=== PATIENT | female | born 1990 | race Caucasian/White ===

== ENCOUNTER 2017-05-30 15:44 | Emergency (ER) | payer MEDICAID, SELFPAY ==
[2017-05-30 15:44] VITALS: BP 105/68; PULSE 75; RESP 16; TEMP 36.8; O2SAT 99; BMI 27.1
--- NOTE | 2017-05-30 16:08 | ED.DCSUM_ITS ---
- ER Visit Summary Date of Service: 05/30/17 Chief Complaint: Nausea and vomiting History of Present Illness: The patient is a 26 F presenting with nausea and vomiting x 3 days. She denies diarrhea. Denies fever. She denies sick contacts. No recent bad food exposure, antibiotics or travel. She states that she has felt generalized weakness today. Complains of mild diffuse abdominal cramping. Denies possibility of . Physical Examination: Vitals are stable. Patient is afebrile. Alert no acute distress HEENT: unremarkable NECK: supple HEART: regular rate and rhythm LUNGS: clear and equal bilaterally ABDOMEN: soft and nontender, no rebound or guarding EXTREMITIES: unremarkable NEURO: no focal deficit Remainder of exam is unremarkable Emergency Department Course and Treatment: Patient is given IV fluids, zofran. CBC, chemistries unremarkable. Liver lipase are normal. HCG negative. Patient is feeling improved in the emergency department. She is able to tolerate p.o. Advised to follow-up with her primary care physician. Advised return to ED for worsening complaints. Disposition: Discharge home Impression: Nausea, vomiting This note was generated with [employer] dictation software. It may contain incorrect words, spelling, and punctuation that were not noted in review of the chart prior to signing ED Disposition - Plan for ED Patient: Disposition: Home or Assisted Living Chief Complaint: Nausea/Vomiting Instructions: ED Nausea Vomiting Prescriptions: Ondansetron [Zofran Odt] 4 mg PO Q8H PRN PRN #10 tablet PRN Reason: Nausea Referrals: Cali Frank MD [Primary Care Provider] -
[2017-05-30] MEDS: 0.9% Normal Saline 1,000 ML 1000 ML IV (16:17)
[2017-05-30] MEDS: Ondansetron 4 MG/2 ML Vial IV (16:17)
[2017-05-30 16:35] LABS: Absolute Lymphocyte Count 2.43 X10^3/ul (0.83-4.51); Absolute Neutrophil Count 6.2 X10^3/uL (2.0-7.7); Basophil# 0.03 X10^3/uL; Basophil% 0.3 % (0-1); Eosinophil# 0.37 X10^3/uL; Eosinophils% 3.8 % (0-5); Hematocrit 42.8 % (37-47); Hemoglobin 14.3 g/dl (12.0-15.0); Lymphocyte # 2.43 X10^3/ul (4.0); Lymphocyte % 24.6 % (19-41); Mean Corp Hgb Conc 33.4 g/gl (32-36); Mean Corpuscular Hgb 30.3 pg (27.0-32.0); Mean Corpuscular Volume 90.7 fL (81-99); Mean Platelet Vol. 11.2 fl (6.2-12.0); Monocyte# 0.83 X10^3/uL; Monocyte% 8.4 % (0-10); Neutrophil # 6.18 X10^3/uL (2.7-7.7); Neutrophil % 62.7 % (47-70); Platelet Count 237 K/mm3 (150-450); RBC Distribution Width CV 13.1 % (11.6-14.6); RBC Distribution Width SD 43.5 fl (35.1-43.9); Red Blood Count 4.72 M/mm3 (4.2-5.4); White Blood Count 9.9 K/mm3 (4.4-11.0)
[2017-05-30 16:41] LABS: POSITIVE COUNT NO; POSITIVE DIFFERENTIAL NO; POSITIVE MORPHOLOGY NO
[2017-05-30 16:58] LABS: ALB/GLOB Ratio 1.1 RATIO (0.9-2.4); AST(SGOT) 5 U/L (15-37); Alanine Aminotransfer ALT/SGPT 15 U/L (13-56); Albumin, Serum 3.7 g/dL (3.2-5.0); Alkaline Phosphatase 72 U/L (45-117); Anion Gap 7 (5-15); BUN 9 mg/dL (7-18); Calcium,Total 8.4 mg/dL (8.5-10.1); Chloride 108 mmol/L (98-107); EST Glomerular Filtration Rate 158 mL/min (>60); Est Glom Filt Rate - Afr Amer 192 mL/min (>60); Estimated Creatinine Clearance 173.51 ml/min; Globulin 3.4 g/dL (2.2-4.2); Glucose 103 mg/dL (74-106); Lipase 112 U/L (73-393); Potassium 3.9 mmol/L (3.5-5.1); Protein, Total 7.1 g/dL (6.4-8.2); Sodium Level 141 mmol/L (136-145)
[2017-05-30 17:17] LABS: Pregnancy, Serum, hCG Quali. NEGATIVE Negative (0-9 Nonpreg)
--- NOTE | 2017-05-30 17:25 | ED.DEP ---
ED Disposition - Plan for ED Patient: Chief Complaint: Nausea/Vomiting Instructions: ED Nausea Vomiting Prescriptions: Ondansetron [Zofran Odt] 4 mg PO Q8H PRN PRN #10 tablet PRN Reason: Nausea Referrals: Cali Frank MD [Primary Care Provider] -
[2017-05-30 17:41] VITALS: BP 124/77; PULSE 68; RESP 15; O2SAT 97
== END 2017-05-30 17:42 | disposition home or self-care (01) ==
PROVIDERS: Emergency Provider Emergency Medicine; Family Provider Family Medicine; PCP Family Medicine
DX: R11.2 Nausea with vomiting, unspecified (principal); Z72.0 Tobacco use
CPT/HCPCS: 80053; 83690; 84703; 85025; 96361; 96374; 99283; J2405

== ENCOUNTER → 2018-06-26 14:06 | Outpatient (CLI) | payer MEDICAID, SELFPAY ==
[2018-06-30 17:22] LABS: HPV Reflexed? NOT INDICATED
== END ==
PROVIDERS: Visit Provider Obstetrics & Gynecology
DX: Z12.4 Encounter for screening for malignant neoplasm of cervix (principal)
CPT/HCPCS: 88175; G0145

== ENCOUNTER → 2018-08-24 16:57 | Outpatient (CLI) | payer MEDICAID, SELFPAY ==
[2018-08-24 19:32] LABS: Chlamydia Trachomatis by PCR Negative (Negative); Neisserai gonorrhoeae by PCR Negative (Negative); Probe Check PASS; Sample Adequacy Control PASS; Specimen Processing Control PASS
== END ==
PROVIDERS: Visit Provider Obstetrics & Gynecology
DX: Z11.3 Encounter for screening for infections with a predominantly sexual mode of transmission (principal)
CPT/HCPCS: 87491; 87591

== ENCOUNTER → 2018-09-08 11:57 | Outpatient (CLI) | payer MEDICAID, SELFPAY ==
[2018-09-08 12:23] LABS: Absolute Neutrophil Count 5.1 X10^3/uL (2.0-7.7); Basophil# 0.04 X10^3/uL; Basophil% 0.5 % (0-1); Color, Urine Yellow (Yellow); Eosinophil# 0.16 X10^3/uL; Eosinophils% 1.9 % (0-5); Glucose, Dipstick Normal (Normal); Hematocrit 41.9 % (37-47); Hemoglobin 14.5 g/dl (12.0-15.0); Ketone-Dipstick Negative (Negative); Leukocyte Esterase-Dipstick 25 /ul (Negative); Lymphocyte % 27.4 % (19-41); Mean Corp Hgb Conc 34.6 g/gl (32-36); Mean Corpuscular Hgb 30.7 pg (27.0-32.0); Mean Corpuscular Volume 88.6 fL (81-99); Mean Platelet Vol. 10.8 fl (6.2-12.0); Monocyte# 0.78 X10^3/uL; Monocyte% 9.3 % (0-10); Neutrophil # 5.09 X10^3/uL (2.7-7.7); Neutrophil % 60.7 % (47-70); Nitrite-Dipstick Negative (Negative); Occult Blood-Urine Negative /ul (Negative); POSITIVE COUNT NO; POSITIVE DIFFERENTIAL NO; POSITIVE MORPHOLOGY NO; Platelet Count 254 K/mm3 (150-450); Protein-Dipstick Negative (Negative); RBC Distribution Width CV 13.3 % (11.6-14.6); RBC Distribution Width SD 43.2 fl (35.1-43.9); Red Blood Count 4.73 M/mm3 (4.2-5.4); Urine Bilirubin Dipstick Negative (Negative); Urine Clarity Clear (Clear); Urine Urobilinogen Normal (Normal); White Blood Count 8.4 K/mm3 (4.4-11.0)
[2018-09-08 12:49] LABS: Thyroid Stim Hormone (TSH) 0.82 uIU/mL (0.358-3.74)
[2018-09-08 12:50] LABS: Amphetamine Urine VISTA NEGATIVE (<1000 ng/mL); Barbiturate Urine VISTA NEGATIVE (< 200 ng/mL); Benzodiazepine Urine VISTA NEGATIVE (< 200 ng/mL); Cocaine Urine VISTA NEGATIVE (< 300 ng/mL); Ecstacy Urine VISTA NEGATIVE (< 500 ng/mL); Methadone Urine VISTA NEGATIVE (< 300 ng/mL); PCP Urine VISTA NEGATIVE (< 25 ng/mL); THC Urine VISTA POSITIVE (< 50 ng/mL); Vista UDS pH Range 8
[2018-09-08 14:15] LABS: HIV - WCH Non-Reactive (Nonreactive); Rubella IgG 284.7 IU/mL
[2018-09-10 13:30] LABS: HEPATITIS B SURFACE AG Negative (Negative); Hep C Antibodies <0.1 s/co ratio (0.0-0.9)
[2018-09-15 01:43] LABS: Prenatal RPR NONREACTIVE (NONREACTIVE)
== END ==
PROVIDERS: Visit Provider Obstetrics & Gynecology
DX: Z34.81 Encounter for supervision of other normal pregnancy, first trimester (principal)
CPT/HCPCS: 36415; 80307; 81002; 84443; 85025; 86703; 86762; 86803; 87340

== ENCOUNTER 2018-10-18 11:59 | Emergency (ER) | payer MEDICAID, SELFPAY ==
[2018-10-18 12:02] VITALS: BP 105/61; PULSE 74; RESP 17; TEMP 36.8; O2SAT 100; BMI 30.5
--- NOTE | 2018-10-18 12:25 | ED.DCSUM_ITS ---
- ER Visit Summary Date of Service: 10/18/18 Chief Complaint: Itchy rash History of Present Illness: The patient is a 28 F states that she is 13 weeks went to bed feeling fine last night and woke with a itchy diffuse rash. Patient describes the rash is red and slightly raised. She denies any changes in soaps lotions detergents perfumes etc. No one else in the house seems to have symptoms. She is patient of Dr. Lim. She is Adryan on Pepcid twice a day. Took a Benadryl this morning with no relief. Physical Examination: Afebrile vital signs stable Gen: Well-nourished well-developed Head: Normocephalic atraumatic Eyes: Perrl EOMI no jaundice ENT: TMs clear no rhinorrhea moist mucous membranes Neck: Supple no lymphadenopathy no JVD nontender CVS: Regular rate rhythm no murmurs normal S1-S2 Respiratory: No distress clear to auscultation bilaterally chest nontender Abdomen: Soft nontender nondistended normal bowel sounds no masses Back: Nontender Extremity: Nontender no edema Skin: Normal color there are raised blanching lesions diffusely on her body. Neuro: alert orientated ?3 CN II-XII intact normal strength sensation reflexes Psych: Normal affect normal mood Emergency Department Course and Treatment: I will start the patient on burst dose prednisone. She is Adryan taking Benadryl as well as Pepcid. Follow-up with [facility]. Impression: 1. Urticaria 2. Second trimester This note was generated with [employer] dictation software. It may contain incorrect words, spelling, and punctuation that were not noted in review of the chart prior to signing ED Disposition - Plan for ED Patient: Disposition: Home or Assisted Living Instructions: Understanding Urticaria (Hives) Prescriptions: Prednisone [Deltasone] 40 mg PO DAILY #10 tab Prescription Printed Referrals: Jessica Lim MD [STAFF PHYSICIAN] - 1 Week if not improving Additional Instructions: Continue Benadryl 25 mg every 6-8 hours. Continue your Pepcid
== END 2018-10-18 12:40 | disposition home or self-care (01) ==
PROVIDERS: Emergency Provider Emergency Medicine
DX: O26.891 Other specified pregnancy related conditions, first trimester (principal); L50.9 Urticaria, unspecified; K59.00 Constipation, unspecified; K21.9 Gastro-esophageal reflux disease without esophagitis; O99.331 Smoking (tobacco) complicating pregnancy, first trimester; F17.200 Nicotine dependence, unspecified, uncomplicated; Z3A.13 13 weeks gestation of pregnancy
CPT/HCPCS: 99282

== ENCOUNTER → 2018-11-03 13:43 | Outpatient (CLI) | payer MEDICAID, SELFPAY ==
[2018-10-18 12:02] VITALS: BMI 30.5
[2018-11-08 04:10] LABS: AFP MoM Value 0.84 (.); Comment Report (.); DIA MoM Value 0.81 (.); DIA Value-EIA 120.82 pg/mL (.); DSR (By Age) 871 (.); DSR (Second Trimester) 8230 (.); Gestat. Age Based On As provided (.); Gestational Age 15.6 WEEKS (.); Insulin Dep Diabetes No (.); Maternal Age At EDD 27.8 yr (.); hCG MoM 0.44 (.); hCG Value 17152 mIU/mL (.)
== END ==
PROVIDERS: Visit Provider Obstetrics & Gynecology
DX: Z34.82 Encounter for supervision of other normal pregnancy, second trimester (principal)
CPT/HCPCS: 36415; 82105; 82677; 84702

== ENCOUNTER → 2019-02-02 10:45 | Outpatient (CLI) | payer MEDICAID, SELFPAY ==
[2019-02-02 11:11] LABS: Hematocrit 38.3 % (37-47); Hemoglobin 12.7 g/dL (12.0-15.0); Mean Corp Hgb Conc 33.2 g/dL (32-36); Mean Corpuscular Hgb 30.9 pg (27.0-32.0); Mean Corpuscular Volume 93.2 fL (81-99); Mean Platelet Vol. 10.6 fl (6.2-12.0); Platelet Count 217 K/mm3 (150-450); RBC Distribution Width CV 13.1 % (11.6-14.6); RBC Distribution Width SD 44.9 fl (35.1-43.9); Red Blood Count 4.11 M/mm3 (4.2-5.4); White Blood Count 10.8 K/mm3 (4.4-11.0)
[2019-02-02 11:30] LABS: Glucose Challenge Gest 1H 50g 99 mg/dL (70-140)
[2019-02-02 13:37] LABS: Amphetamine Urine VISTA NEGATIVE (<1000 ng/mL); Barbiturate Urine VISTA NEGATIVE (< 200 ng/mL); Benzodiazepine Urine VISTA NEGATIVE (< 200 ng/mL); Cocaine Urine VISTA NEGATIVE (< 300 ng/mL); Ecstacy Urine VISTA NEGATIVE (< 500 ng/mL); Methadone Urine VISTA NEGATIVE (< 300 ng/mL); PCP Urine VISTA NEGATIVE (< 25 ng/mL); THC Urine VISTA POSITIVE (< 50 ng/mL); Vista UDS pH Range 6
== END ==
PROVIDERS: Visit Provider Obstetrics & Gynecology
DX: Z34.83 Encounter for supervision of other normal pregnancy, third trimester (principal)
CPT/HCPCS: 36415; 80307; 82950; 85027

== ENCOUNTER 2019-02-08 12:50 | Emergency (ER) | payer MEDICAID, SELFPAY ==
[2019-02-08 12:52] VITALS: BP 135/87; PULSE 97; RESP 20; TEMP 36.6; O2SAT 99; BMI 34.5
--- NOTE | 2019-02-08 13:12 | ED.DCSUM_ITS ---
History of Present Illness Chief Complaint: Cold Sx Detail of Chief Complaint: Cough and congestion Informant: Patient Onset: Weeks - 2 weeks Current Severity: Moderate Maximum Severity: Moderate Narrative: Patient presents with cough and congestion for the past 2 weeks. She is bringing up yellow-colored sputum. She has not had fever. She is a history of asthma, but does not have an inhaler. She states she wakes up in the middle the night gasping for breath with tightness around her right lung. She is currently 29-1/2 weeks . She is tried Mucinex, Sudafed, cough drops, and Ro bitussin without significant improvement. Past Medical History - Allergies and Home Meds Allergies/Adverse Reactions: Allergies No Known Allergies Allergy (Verified 02/08/19 12:51) Primary Care Physician: Cali Frank MD [Primary Care Provider] - 3-5 Days if not improving Doctors: Dr. Lim Prior records reviewed: Yes Past Medical History: - - Reviewed Lives: With Family Smoking Status: Former smoker Review of Systems General: Denies: Chills, Fever Eyes: Denies: Visual changes - bilaterally ENT: Reports: - - Head congestion. Denies: Bilateral ear pain Cardiovascular: Denies: Chest pain Respiratory: Reports: Dyspnea, Cough, Sputum Gastrointestinal: Reports: Nausea - Posttussive dry heaves. Denies: Abdominal pain Genitourinary: Denies: Dysuria Musculoskeletal: Reports: Myalgias Hematologic: Denies: Easy bruising Allergy: Denies: Uticaria Physical Exam Vital Signs/Narrative: Vital Signs Temp Pulse Resp BP Pulse Ox 02/08/19 12:52 97.8 F 97 20 H 135/87 H 99 Inital Vital Signs reviewed: Yes General: Well nourished, Well developed Head: Normocephalic, Atraumatic Eyes: Perrl, EOMI ENT: Moist mucous membranes, TM's clear, - - Mild posterior pharyngeal drainage. Uvula midline. Neck: - - Mild anterior cervical lymphadenopathy bilaterally. Cardiovascular: Regular rate, Regular rhythm Respiratory: No distress, CTA bilaterally Abdomen: Soft, Nontender - Gravid Extremities: Nontender Skin: Normal color, No rash Neurological: Alert, Oriented x3 Psychological: Normal affect Diagnostic/Tx/Re-eval - Medical Decision Making Patient does have frequent moist cough during exam. Her lungs are clear. With 2 weeks of symptoms she will be covered with a course of Zithromax, first dose given here. She will also be given a prescription for an albuterol inhaler. Without wheezing currently do not think she needs steroids at this time. She will continue her Robitussin and cough drops [id number]. ED Disposition - Plan for ED Patient: Disposition: Home or Assisted Living Diagnosis: Bronchitis Instructions: Acute Bronchitis Prescriptions: Albuterol Inhaler [Ventolin Hfa] 1 - 2 puff INHALATION Q4H PRN PRN #1 inhaler PRN Reason: Wheezing Prescription Printed Azithromycin [Zithromax] 250 mg PO DAILY #4 tab Prescription Printed Referrals: Cali Frank MD [Primary Care Provider] - 3-5 Days if not improving
[2019-02-08] MEDS: Azithromycin 250 MG Tablet 500 MG PO (13:31)
== END 2019-02-08 13:36 | disposition home or self-care (01) ==
PROVIDERS: Emergency Provider Emergency Medicine; Family Provider Family Medicine; PCP Family Medicine
DX: O99.511 Diseases of the respiratory system complicating pregnancy, first trimester (principal); J20.9 Acute bronchitis, unspecified; J45.909 Unspecified asthma, uncomplicated; Z87.891 Personal history of nicotine dependence; Z3A.01 Less than 8 weeks gestation of pregnancy
CPT/HCPCS: 99283; J7030

== ENCOUNTER → 2019-03-26 15:38 | Outpatient (CLI) | payer MEDICAID, SELFPAY | PROVIDERS: Visit Provider Obstetrics & Gynecology | DX: Z36.85 Encounter for antenatal screening for Streptococcus B (principal) | CPT/HCPCS: 87081 ==

== ENCOUNTER 2019-04-18 07:00 | Inpatient (IN) | payer MEDICAID, SELFPAY ==
[2019-04-18] MEDS: Lactated Ringers 1,000 ML 50 ML IV (07:45)
[2019-04-18 07:50] VITALS: BMI 36.8
[2019-04-18] MEDS: Oxytocin 30 units/NS 500 ml 30 UNITS/500 ML IV.SOLN IV (07:52)
[2019-04-18 08:29] LABS: Absolute Lymphocyte Count 2.79 X10^3/uL (0.83-4.51); Absolute Neutrophil Count 10.2 X10^3/uL (2.0-7.7); Basophil# 0.09 X10^3/uL; Basophil% 0.6 % (0-1); Eosinophil# 0.18 X10^3/uL; Eosinophils% 1.2 % (0-5); Hematocrit 36.4 % (37-47); Hemoglobin 12.2 g/dL (12.0-15.0); Lymphocyte # 2.79 X10^3/ul (4.0); Lymphocyte % 18.7 % (19-41); Mean Corp Hgb Conc 33.5 g/dL (32-36); Mean Corpuscular Volume 89.4 fL (81-99); Mean Platelet Vol. 11.5 fl (6.2-12.0); Monocyte# 1.23 X10^3/uL; Monocyte% 8.2 % (0-10); NRBC Flagged by Analyzer 0 % (0-5); Neutrophil # 10.15 X10^3/uL (2.7-7.7); Neutrophil % 67.9 % (47-70); Platelet Count 236 K/mm3 (150-450); RBC Distribution Width CV 12.9 % (11.6-14.6); RBC Distribution Width SD 42.2 fl (35.1-43.9); Red Blood Count 4.07 M/mm3 (4.2-5.4)
--- NOTE | 2019-04-18 09:21 | HP.PCM_ITS ---
History and Physical Date of Admission: 04/18/19 [facility] [place] PHYSICAL (04/18/2019) Name: YISSEL REEVES OB Physician: WILMA Leeds's Physician: Yumiko ...................................................................... : 1990 Age: 28 Address: [address] [place] [address] Phone: (h) [phone] ([phone] Insurance Carrier: [employer] CLAIMS DEPT [id number] Emergency Contact: JANELL JOHNSON/AUNT [phone] ...................................................................... Yissel is a 28yo at 39w2d gestation by 7w4d US admitted for elective IOL today; pt reports a hx of schizophrenia, bipolar disorder, PTSD and THC use, is aware a tox screen will be requested today and is agreeable; she is not on medication for psychiatric disorders and seems appropriate today; she is accompanied by her spouse who is supportive Final BENJY: 04/23/19 By Ultrasound: 7 weeks 4 days PARITY: (G-Total Pregnancies P-Fullterm,Premature,Induced AB,Spont AB, Ectopics, Multiple,Living) BENJY CONFIRMATION: By LMP: 07/10/18 Initial Exam: 04/16/19 By First Ultrasound Exam: 04/23/19 Final BENJY: 04/23/19 OB PROBLEM LIST: Admits to recent marijuana use regularly smoking marijuana in has a sister with animpulse disorder, states form of autism Has been through [facility] program Patient schizophrenic, bipolar and PTSD Prefers NO epidural, if possible See other note (violent when in pain) Pt has a family hx of neurological problems (she has tics, father has Parkinson's, epilepsy). Son has seizures (unknown etiology) Shares that she was hospitalized when her son was a year old for depression and psychosis. 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 Sterilization request, Prefers no Filshie clips. Discussed BTF vs bilateral salpingectomy. R,B,A, permanence, failure rate. Federal consent signed on 03/13/19 Wants MSAFP and declines CF testing ALLERGIES: NKDA MEDICATIONS: Colace 100 mg capsule 1 po bid Miralax 17 gram/dose oral powder 17 gm po daily Pepcid 20 mg tablet 1 po bid 28 mg-800 mcg tablet daily SOCIAL HISTORY: Smoking - 5-8 cigs per day, ATQ Alcohol Use - denies drinking Diet - High fast food diet, high caffeine Lifestyle - high stress lifestyle and Exercise - walks everywhere Employer - [employer] Job Description - [place] Illicit Drug Use - admits marijuana use Sexual Activity - Residence - Lives with family at in-laws Place of - [place], [place] Hours Worked - 40 hours per week Spouse-Sig Other Name - Yann Reeves Spouse-Sig Other Occupation - SSI Spouse-Sig Other Phone No - no phone Children Name(s) - Isaac (EB)Eric ( 14' EB) PRIOR DELIVERY HISTORY DEL DATE GEST LAB WT LB WT OZ TYPE ANES LABOR TX 24 Jan 14 39 7 7 12 Vag Epidural No 28 Jan 11 40 14 8 1 Vag Epidural No ANTEPARTUM FLOW CHART VISIT GE RTC FU F F GA U U DATE WK MD WKS HT PN HR M SS BP ED WT GA GL D EF ST __ ____ ___ __ __ ___ __ __ __ ___ __ __ __ ___ __ 13 Apr KW 1 39 V + + 120/60 sl 241 tr - 3 80 -2 Apr CH 1 38 V + + 120/64 sl 239 tr - Mar 37 KW 1 38 + + 110/80 0 237 tr - Mar 36 CH 1 36 V + + 102/80 sl 237 tr - 10 Mar 34 ELB 2 34 - + + 120/72 sl 237 26 Feb CH 2 32 + + 110/60 sl 236 tr - 15 Mar 03 KW 2 30 + + 120/80 sl 230 - - 01 Mar 01 ELB 2 28 - + + 100/60 229 04 Oct ELB 4 24 - + + 120/70 sl 222 tr - 06 Dec 22 ELB 4 - - U+ + 112/80 0 209 tr - Nov 16 ELB 5 - - + O 102/70 0 209 tr - 05 Oct 12 ELB 4 - - U+ US 90/58 0 196 tr - 07 Sep 08 ELB 4 - - U+ US 110/70 190 - - ANTEPARTUM NOTE(S): Apr 16 2019: feeling well. Cervix check. Apr 09 2019: feeling well. Cervix check. Apr 02 2019: feeling well. Mar 26 2019: GBS and LARC today. Mar 13 2019: Nov 26 2019: feeling well. Very tired. Feb 16 2019: finished rx for Bronchitis 2 days ago. Feb 02 2019: cold sx, back pain Jan 05 2019: glucola given Dec 08 2018: feeling well. Nov 03 2018: feeling well. Oct 06 2018: tired nausea with vitamin Sep 08 2018: Nausea. US, NOB, PNV. COMPREHENSIVE ANTEPARTUM NOTE(S): Apr 16 2019: Feeling well; reports active FM, frequent BH UCs, denies VB, LOF; VE per pt request /-2, soft, mid position; pt requesting IOL, scheduled for 04/18/19 0700; discussed warning signs, s/s Labor, when to call/come in; RTO 1 week for PNV - KVW Apr 09 2019: (m,m,f*) FM+. FHR 138. Membrane sweeping discussed. SVE 1.5/75/-3. Sweeping done. [place] have increased the last week or two, but nothing regular. Warning signs of decreased FM, bleeding or regular UC. To return in 1 week for routine PNV. To discuss induction at 40 weeks. - Apr 02 2019: Feeling well; reports active FM, frequent BH UCs, denies VB, LOF; continues to want to labor without an epidural, feels that she is more in control of her emoitions now having experienced two prior births, and less risk of becoming violent when in pain; discussed warning signs, s/s Labor, when to call/come in; RTO 1 week for PNV - KVW Apr 02 2019: H taken to OB. tkg Mar 29 2019: GBS negative. EB Mar 26 2019: (m,m,f*) FM+. FHR 156. GBS collected today. SVE education given. BTL consent signed with Dr. Lim at last visit. Okay with CNM delivery. Trying to still avoid epidural, but all pain management options given. Warning signs of decreased FM, bleeding or regular UC. To return in 1 week for routine PNV - Mar 25 2019: (m,m,f*) FM+. FHR. GBS collected today. SVE education given. BTL consent signed with Dr. Lim at last visit. Okay with CNM delivery. Trying to still avoid epidural, but all pain management options given. Warning signs of decreased FM, bleeding or regular UC to call. Will return in 1 week for routine PNV. - Mar 13 2019: Yissel is here at 34.1 weeks gestation for visit. Baby active. Slight edema in fingers w ring tight- suggested removing. Asking how to sign papers for tubal after delivery. Surinder FOSTER. Mar 13 2019: Reviewed pain relief in labor Can get violent when in pain as prior chart note. She had epidural with both prior deliveries. Back pain, chronic. Reviewed option for epidural. IV pain med. She will see what she needs in labor. OK with CNM delivery. Has met Deja and plans to follow up with her. FEDERAL consent for BTO signed today. Reviewed options: DECLINES FILSHIE CLIPS , Considering either BTF for bilateral salpingectomy. EB Feb 27 2019: (m,m,f*) Reports +FM. FHR 122 .Instructed to call with RUC, ROM, bleeding, or decreased FM. Has no complaints or concerns. Wants to discuss BTL with Dr. Lim at next visit. Asked if 6 year old could be in delivery room. Let her know its up to the individual provider that day, but he would have to have an adult assigned just to him. Will return in 2 weeks for routine PNV. - Feb 16 2019: Feeling better, went to [facility] MD last week who sent her to ER; she was given an rx for Azithromycin which she has finished, and an albuterol inhaler which she still uses once each evening; was told she had bronchitis; has not smoked (anything) in two weeks, too irritating to throat, diffidcult to breathe after; lungs CTA upper lobes, slightly diminished in bases, good air movement; will discuss with spouse and inform at next visit preference for MD, CNM care or either; wants as natural a labor as possible, planning to use Budhist chants/focal point in labor; reports active FM; denies UCs, VB, LOF; discussed inreased rest, fluids, FM counts, warning signs, s/s PTL; RTO 2 weeks for PNV - KVW Feb 08 2019: Yissel calling @ 29 wks 3 days to report she still has a cough, feels SOB, chest tightness, R sided rib area pain--concerned she may have bronchitis. She has not checked her Temp. Not sleeping d/t persistent cough. Voice very raspy on the phone. She has been taking Mucinex, Tylenol, Sudafed -- w/no improvement in Sx. Advised to see her PCP TODAY for evaluation. Feb 02 2019: Yissel complains of cold sx for over a week. Afebrile today in office, T-97.7. She relates increased back pain. Advised may try Tylenol, massage, chiropractor, PT. Will consider all. Maternity support belt may help and admits that she feels her weight gain may be contributing and agree this may be part of the issue. Glucola drawn today. LMT Feb 02 2019: Reviewed sx relief of back pain, cold sx. OTC list of meds given. RTO in 2 wk for PNV. Meeting CNM next visit. Advised if cold sx more than 1 wk with taking med, call back in. Kids at home have been sick also. States nasal congestion, cough. poor sleep, etc. Utox to be sent today. EB Glucola 99 Hgb 12.7 g/dl. EB Jan 05 2019: Glucola given with instructions. Encouraged Tdap and Influenza. LMT Jan 05 2019: Discussed wt gain 35# by 24 wks. Anticipate 50# or more by EDC. Encouraged to limit portions, fried foods, sweets. Admits to eating fair foods and birthday cakes as sources of her inc calories. EB Nov 03 2018: WANTS MSAFP and draw this today. RTO In 4 1/2 to 5 wk for anatomy sono. Reviewed wt gain. eliminate sweet liquids. Watch portion size. Anticipate up to 60# wt gain if diet / activity is not changed. EB Nov 03 2018: MSAFP is drawn today. LMT Oct 06 2018: Yissel is here for visit. Relates throws up after taking PNV and advised she can stop this for a couple weeks and then retry. She relates that she is very tired and sleeps about 15 hours a day. Advised fatigue and nausea pretty normal in first trimester and should start feeling better soon. She has gained 6 lbs since her last visit. LMT Oct 06 2018: Reviewed NOB labs. Positive marijuana. States this is due to storage of the drug in her fatty tissue. Denies current use and advised that she should not be using this in . Other labs all WNL. TSH wnl and Hgb WNL. Doing OK. sono confirms viable IUP. EB Sep 08 2018: Constipation Heart burn. Nausea. RX Colace bid, Miralax. Pepcid bid. Positive THC. A positive RI. Hgb 14.5 g/dl. EB Sep 08 2018: Yissel is here for her NOB visit at 7 w 4 d GA, she is a with an BENJY of 04/23/2019. US completed prior to NOB visit, and she will have labs drawn and PNV with Dr. Lim before leaving the office today. Yissel is established pt, office practice patterns reviewed, as well as what labs will be collected today. Emergencies/danger signs to report, round ligament pain, reporting s/s of a UTI, and common OTC medications approved/not approved for use during reviewed. Yissel resides with her , and their two sons at her in-laws residence, as they lost there home and their car broke down. Yissel works FT at [employer], and walks everywhere that she can. Her , Yann, is on SSI; she states that she has Schizophrenia, Bipolar disorder, and PTSD. Past history updated. Delivery at [facility] is planned, she prefers NOT to have an epidural, if possible but is not adverse to one. Yissel plans to breastfeed. C/O daily nausea. Reviewed measures that may help minimize nausea, such as small frequent balanced meals with protein included throughout the day, adequate water hydration of at least one gallon per 24 hrs., Unisom at bedtime, and Vitamin B6 50 mg twice a day. She corona sbeen taking an OTC vitamin and a DHA supplement, states that she tolerates the vitamin, but that the DHA makes her a bit nauseated. Discussed that she may skip the DHA until nausea resolves. Yissel states that she continues to smoke, but has cut back from 1-1/2 - 2 PPD to 5-8 cigs./day; ATQ entirely. She denies use of ETOH, but admits to recent marijuana use, advised to stop. She is aware that with a positive drug screen, she will have random urine drug screens during . Genetic Screening form completed, she has a family hx of her paternal side of neurological problems, Tics, Parkinson's Disease, epilepsy. She states that her oldest son has occasional seizures (unknown etiology). She wants MSAFP drawn, and declines CF testing; consent signed as such. Yissel shares that her diet is a lot of fast food, and that she doesn't drink much water. Reviewed making healthier substitutions as she can and adding more water into her day, and ways to make water more interesting for her, such as putting fresh or frozen fruit into the water. Reviewed caloric needs, recommended weight, limiting empty calories, and limiting caffeine to one cup a day (explained that this includes sweet tea). food safety guide provided with much discussion. Yissel walks everyday, to work, home, shopping. Reviewed lifting restrictions for . Kegel exercises encouraged. Lynne ash state sthat she understands all information provided during NOB visit, and has no questions following same. AW New Aug 25 2018: Cervical cultures NEG. EB Aug 24 2018: Here to establish care for . Next pap due in 2019. She had her IUD removed in June of this year to try for . EB Aug 24 2018: Yissel is being seen for missed menses. . LMP 4-8-19. Pt is about 6 weeks and 3 days. BENJY 04-16-09. Pt is a smoker, advised to quit as well as socially using marijuana. Medications and allegies are up to date, pt to check if has DHA in it. Pt did complain about some cramping, advised to increase water intake to a gallon to 2 gallons dialy. information reviewed. AM Jun 26 2018: PT is a 27 yo female, G-2 P-2 here today for her annual. PT has Mirena for her contraception and is amenorrheic. PT denies any problems or concerns at this time. PT s allergies, medications, and PMH reviewed and updated. Pts previous pap was 09-20-2016 and was ASCUS with - HPV. dg Jun 25 2018: Scheduled for annual. Pap due. IUD in place, due for removal by 2021. EB REVIEW OF SYSTEMS: GENERAL - Denies fever, or chills SKIN - Denies rash, new skin lesions, or change in moles EYES - Denies blurred vision, or change in visual acuity EARS - Denies ear pain, or difficulty hearing NOSE - Denies nasal congestion, discharge, or bleeding MOUTH - Denies sore throat, or difficulty swallowing NECK - Denies pain or swelling RESPIRATORY - Denies shortness of breath, cough, wheezing CARDIOVASCULAR - Denies palpitations, chest pain, orthopnea, PND, peripheral edema, syncope or claudication GASTROINTESTINAL - Denies nausea, vomiting, diarrhea, constipation, Denies abdominal pain, melena and or bright red blood GENITOURINARY - Denies dysuria, frequency of urination, urgency, or hesitancy MUSCULOSKELETAL - Denies joint or muscle pain, or back pain NEUROLOGICAL - Denies localized numbness, weakness, or tingling PSYCHIATRIC - Denies depression, anxiety, substance abuse or suicide attempts ENDOCRINE - Denies heat or cold intolerance, weight loss or gain, increasing thirst HEMATO-IMMUNOLOGIC - Denies easy bruising, bleeding, oral ulcerations or recurrent infections GENETICS SCREENING: Age 35+ years: No Thalassemia: No Neural Tube Defect: No Down Syndrome: No MONTY-SACHS: No Sickle Cell Disease: No Hemophilia: No Musc. Dystrophy: No Cystic Fibrosis: No-declines screening Caitlin Chorea: No Mental Retardation: No Fragile X: No Other genetic: No Other defects: No SABs/still births: No Drugs since LMP: Yes Comments: Sister withi mpulse disorder INFECTION HISTORY: High risk AIDS: No High risk Hepatitis: No Exposed to TB: No Exposed to Herpes: No Rash/viral illness since LMP: No History of STD: No Comments: multiple sexual partners MENSTRUAL HISTORY: *Menses Amount/Duration: 3 daysMenses Regularity: RegularFrequency: monthlyMenarche (Age Onset): 14* PAST SUMMARY: PARITY: 1. Total Pregnancies............ 3 2. Full Term Pregnancies........ 2 3. Premature.................... 0 4. Abortions - Induced.......... 0 5. Abortions - Spontaneous...... 0 6. Ectopics..................... 0 7. Multiple Births.............. 0 8. Living Children.............. 2 PAST #1: Date of :.................. 01/29/11 Gestation Weeks:................ 40 Length of labor(hours):......... 14 Sex:............................ M Weight-lbs:............... 8 Weight-oz:................ 1 Type of Delivery:............... Vag Type of Anesthesia:............. Epidural Place of Delivery:.............. [place] Treatment of Labor?:.... No Comment: 2 EPIDURALS, UTI POST- PAST #2: Date of :.................. 01/25/14 Gestation Weeks:................ 39 Length of labor(hours):......... 7 Sex:............................ M Weight-lbs:............... 7 Weight-oz:................ 12 Type of Delivery:............... Vag Type of Anesthesia:............. Epidural Place of Delivery:.............. [place] Treatment of Labor?:.... No Comment: RAPID 2ND STAGE, PPH Labs for : YISSEL REEVES since 07/27/2018 ORDER DATEIN DESCRIPTION VALUE UNITS RANGE A+ COMMENT CULTURE, GROUP B STREPTOCOCCUS 03/26/19 NOTE Original Ordering Provider: SALVADOR Kendrick Comments: VAGINAL/RECTAL AMY Culture Group B Beta Streptococcus is not isolated. Reviewed by JESSICA URINE DRUG SCREEN (VISTA) 02/02/19 NOTE Original Ordering Provider: Jessica Lim TO BE CONFIRMED CONFIRMATORY TESTING FOR ALL POSITIVE URINE DRUG SCREEN RESULTS WILL ONLY BE SENT OUT UPON PHYSICIAN ORDER. VISTA Urine Drug Screen methods provide only preliminary analytical test results. A more specific alternate chemical method must be used in order to obtain a confirmed analytical result. Gas chromatography/mass spectrometery (GC/MS) is the preferred confirmatory method. Clinical consideration and professional judgement should be applied to any drug of abuse test result, particularly when preliminary positive results are used. URINE TCA TESTING MUST BE ORDERED SEPARATELY. USE TEST MNEMONIC: [facility] UDS PH 6 AMPHETAMINES NEGATIVE <1000 ng/mL BARBITIURATES NEGATIVEw < 200 ng/mL BENZODIAZIPINE NEGATIVE < 200 ng/mL COCAINE NEGATIVE < 300 ng/mL ECSTACY NEGATIVE < 500 ng/mL METHADONE NEGATIVE < 300 ng/mL OPIATES NEGATIVE < 300 ng/mL PCP NEGATIVE < 25 ng/mL THC POSITIVE < 50 ng/mL H w Reviewed by JESSICA Reviewed by JESSICA GLUCOSE CHALLENGE GEST 1H 50G 02/02/19 NOTE Original Ordering Provider: Jessica Lim GLU GEST 50G 1H 99 mg/dL 70-140 Reviewed by JESSICA CBC-COMPLETE BLOOD CNT NO DIFF 02/02/19 NOTE Original Ordering Provider: Jessica Lim WBC 10.8 K/mm3 4.4-11.0 RBC 4.11 M/mm3 4.2-5.4 L HGB 12.7 g/dL 12.0-15.0 HCT 38.3 % 37-47 MCV 93.2 fL 81-99 MCH 30.9 pg 27.0-32.0 MCHC 33.2 g/dL 32-36 RDW CV 13.1 % 11.6-14.6 RDW SD 44.9 fl 35.1-43.9 H PLT 217 K/mm3 150-450 MPV 10.6 fl 6.2-12.0 Reviewed by JESSICA AFP TETRA QUAD SCREEN 11/03/18 NOTE Original Ordering Provider: Jessica Lim TEST RESULTS: *Screen Negative* . GESTATIONAL AGE 15.6 WEEKS . GEST AGE FROM As provided . [facility] AGE [age]BENJY [age] . RACE . WEIGHT 209 lbs . INS DEP DIABETE No . MULT GESTATION No . AFP VALUE-EIA 21.0 ng/mL . AFP MOM VALUE 0.84 . HCG VALUE 41657 mIU/mL . HCG MOM 0.44 . UE3 VALUE 0.40 ng/mL . UE3 MOM 0.57 . LUIS VALUE-EIA 120.82 pg/mL . LUIS MOM VALUE 0.81 . OSBR RISK 28033 . DSR 2ND TRIMEST 8230 . DSR (BY AGE) 871 . T18 RISK Not increased . T18 (BY AGE) 1:3393 . INTERPRETATION . Interpretation: Screen Negative This result is screen negative for OSB, Down Syndrome and Trisomy 18. The AFP MoM and patient specific risks calculated are based on the gestational age and the clinical information provided. This test can identify up to 80% of open neural tube defects. Closed neural tube defects and some open defects may not be detected by this test. The combination of maternal age, AFP, hCG, uE3, and LUIS identifies 75-80% of Down Syndrome. The combination of maternal age, AFP, hCG and uE3 identifies 60% of Trisomy 18 pregnancies. The [employer] recommends amniocentesis be offered to women age 35 and older. Recalculations are not recommended when gestational dating by LMP and ultrasound are within 10 days. Reviewed by JESSICA RPR 09/08/18 NOTE Original Ordering Provider: Jessica Lim RPR NONREACTIVE NONREACTIVE Reviewed by JESSICA HEPATITIS C ANTIBODIES 09/08/18 NOTE Original Ordering Provider: Jessica Lim HEP C AB <0.1 s/co ratio 0.0-0.9 Negative: < 0.8 Indeterminate: 0.8 - 0.9 Positive: > 0.9 The CDC recommends that a positive HCV antibody result be followed up with a HCV Nucleic Acid Amplification test (697617). Reviewed by JESSICA HEPATITIS B SURFACE AG 09/08/18 NOTE Original Ordering Provider: Jessica Lim HB SURF AG Negative Negative Performed at: [address] [id number] Heel Slicker: Armando Oliva PhD, Phone: [phone] Reviewed by JESSICA HIV - [facility] 09/08/18 NOTE Original Ordering Provider: Jessica Lim HIV - [facility] Non-Reactive Nonreactive w Reviewed by JESSICA RUBELLA IGG 09/08/18 NOTE Original Ordering Provider: Jessica Lim RUBELLA IGG 284.7 IU/mL Antibody results Interpretation of Immune Status < 5 IU/ml Presumed Non-immune 5 - < 10 IU/ml Equivocal > or = 10 IU/ml Presumed Immune Reviewed by JESSICA T AND S-NO CHARGE W/PNP 09/08/18 Reason for Type AND Screen/Red Cells: Surgery? [address] [facility]~[address] [facility] [place], [address]~ BLOOD TYPE GEL A POSITIVE N AB SCREEN GEL NEGATIVE N Reviewed by JESSICA URINE DRUG SCREEN (VISTA) 09/08/18 NOTE Original Ordering Provider: Jessica Lim TO BE CONFIRMED CONFIRMATORY TESTING FOR ALL POSITIVE URINE DRUG SCREEN RESULTS WILL ONLY BE SENT OUT UPON PHYSICIAN ORDER. VISTA Urine Drug Screen methods provide only preliminary analytical test results. A more specific alternate chemical method must be used in order to obtain a confirmed analytical result. Gas chromatography/mass spectrometery (GC/MS) is the preferred confirmatory method. Clinical consideration and professional judgement should be applied to any drug of abuse test result, particularly when preliminary positive results are used. URINE TCA TESTING MUST BE ORDERED SEPARATELY. USE TEST MNEMONIC: [facility] UDS PH 8 AMPHETAMINES NEGATIVE <1000 ng/mL BARBITIURATES NEGATIVE < 200 ng/mL BENZODIAZIPINE NEGATIVE < 200 ng/mL COCAINE NEGATIVE < 300 ng/mL ECSTACY NEGATIVE < 500 ng/mL METHADONE NEGATIVE < 300 ng/mL OPIATES NEGATIVE < 300 ng/mL PCP NEGATIVE < 25 ng/mL THC POSITIVE < 50 ng/mL H Reviewed by JESSICA THYROID STIM HORMONE (TSH) 09/08/18 NOTE Original Ordering Provider: Jessica Lim TSH 0.82 uIU/mL 0.358-3.74 Reviewed by JESSICA URINALYSIS, ROUTINE (DIPSTICK) 09/08/18w NOTE Original Ordering Provider: Jessica Lim COLOR Yellow Yellow CLARITY Clear Clear GLUCOSE, UR Normal mg/dl Normal BILIRUBIN URINE Negative mg/dL Negative KETONE UR Negative mg/dl Negative SP.GR. DIPSTX 1.010 1.002-1.030 PH UR 8.0 5.0 - 8.0 PROT DIPSTX Negative mg/dl Negative UROBILI Normal mg/dl Normal NITRITE UR Negative Negative OCCULT BLOOD-UR Negative /ul Negative LEUK ESTERASE 25 /ul Negative H Reviewed by JESSICA CBC W/DIFF, AUTOMATED 09/08/18 NOTE Original Ordering Provider: Jessica Lim WBC 8.4 K/mm3 4.4-11.0 RBC 4.73 M/mm3 4.2-5.4 HGB 14.5 g/dl 12.0-15.0 HCT 41.9 % 37-47 MCV 88.6 fL 81-99 MCH 30.7 pg 27.0-32.0 MCHC 34.6 g/gl 32-36 RDW CV 13.3 % 11.6-14.6 RDW SD 43.2 fl 35.1-43.9 PLT 254 K/mm3 150-450 MPV 10.8 fl 6.2-12.0 NEUT% 60.7 % 47-70 LY% 27.4 % 19-41 MONO% 9.3 % 0-10 EO% 1.9 % 0-5 BASO% 0.5 % 0-1 IM GRAN % 0.200 % 0.0-0.9 IG% - Immature Granulocytes (promyelocytes, myelocytes and metamyelocytes) > 1% indicates that a LEFT SHIFT is Present. ABSOLUTE NEUT 5.1 X10 3/uL 2.0-7.7 ABSOLUTE LYMPH 2.30 X10 3/ul 0.83-4.[address]/WILDER [facility] BY PCR 08/24/18 NOTE Original Ordering Provider: Jessica HARRIS [facility] PCR Negative Negative NG BY PCR Negative Negative Reviewed by JESSICA PROVIDER SIGNATURE ( REQUIRED) PHYSICAL EXAMINATION General Appearence: 28 yo female in no acute distress Vital Signs: AF, VSS Heart: RRR without rubs or gallops Lungs: CTA x 2 Breasts: deferred Abdomen: gravid Pelvis: Cervix: 5/80/-2, soft, anterior at approx 0745 per RN Presentation: cephalic Fetus: Size: AGA Movement: present Heart: 120 baseline, moderate variability, +accels, no decels UCs: Q 2-4 minutes Impression: 28yo at 39w2d gestation by 7w4d US Term IOL Hx of THC use Reported hx of schizophrenia, bipolar disorder and PTSD GBS negative Plan: Admitted to inpatient UDS Pitocin 2mu, increase by 2mu Q 30 minutes to achieve adequae labor Anticipate vaginal delivery
[2019-04-18 10:30] LABS: Amphetamine Urine VISTA NEGATIVE (<1000 ng/mL); Barbiturate Urine VISTA NEGATIVE (< 200 ng/mL); Benzodiazepine Urine VISTA NEGATIVE (< 200 ng/mL); Cocaine Urine VISTA NEGATIVE (< 300 ng/mL); Ecstacy Urine VISTA NEGATIVE (< 500 ng/mL); Methadone Urine VISTA NEGATIVE (< 300 ng/mL); PCP Urine VISTA NEGATIVE (< 25 ng/mL); THC Urine VISTA NEGATIVE (< 50 ng/mL); Vista UDS pH Range 6
[2019-04-18] MEDS: Lactated Ringers 500 ML 999 ML IV ×2 (12:59→14:34)
[2019-04-18] MEDS: fentaNYL-bupivacaine (epidural) 100 ML BAG EPIDURAL (14:01)
[2019-04-18] MEDS: Oxytocin 30 units/NS 500 ml 30 UNITS/500 ML IV.SOLN 334 UNITS IV (17:08)
[2019-04-18] MEDS: Methylergonovine 0.2 MG/ML Ampul IM (17:36)
--- NOTE | 2019-04-18 17:52 | PCM.OPRPT ---
Vaginal Delivery Maternal Presentation: Elective Induction Method of Induction: Pitocin Amniotic Membrane Rupture Type: Spontaneous Rupture of Membrane time: 930 Amniotic Fluid Description: Clear Final BENJY: 04/23/19 Final BENJY Source: US <20 weeks Gestational age: 39 Weeks and 2 Days Date of Procedure: 04/18/19 Pre-Operative Diagnosis: IOL Post-Operative Diagnosis: Surgery/ Procedure Performed: Spontaneous Vaginal Delivery Type of Anesthesia: Epidural Description of Procedure: CTSP when she was C/C/+2; pushed well a delivered a vigorous male over an intact perineum; L nuchal hand noted; shoulders followed easily with maternal effort; infant placed on mother's abdomen, dried and stimulated, APGARs 8/9; cord clamped x 2 and cut by this provider; at 30 minutes of active management including cord traction and IV Pitocin, placenta had not delivered; Saul Ayers MD called to bedside who delivered placenta by manual expression, Jade mechanism, intact, 3-vessel cord, central insertion; perineum intact; EBL 550 Raytec and instrument count correct x 2 with RN Presentation: Vertex, SNEHA Placental Delivery Description: Expressed - Manually per Dr. Saul Ayers Cord Vessel Description: 3 Vessels Cord Entanglement: None Estimated Blood Loss: 550 (1 minute): 8 (5 minute): 9 Episiotomy Description: None Laceration: None Medications given after delivery: IV Pitocin
[2019-04-18] MEDS: 0.9% Saline Lock 10 ML Syringe IV (19:57)
--- NOTE | 2019-04-18 20:40 | NURSING ---
report given to ray kenyon RN. that rn to assume care of pt at this time.
[2019-04-18 23:42] VITALS: BP 103/53; PULSE 88; RESP 16; TEMP 36.9
[2019-04-18] MEDS: Acetaminophen 500 MG Tablet 1000 MG PO (23:49)
[2019-04-19] MEDS: Ibuprofen 600 MG Tablet PO ×4 (02:00→21:38)
[2019-04-19 04:00] VITALS: BP 89/59; PULSE 76; RESP 16; TEMP 36.4
[2019-04-19 04:26] LABS: Mean Corp Hgb Conc 33.3 g/dL (32-36); Mean Corpuscular Hgb 29.8 pg (27.0-32.0); Mean Corpuscular Volume 89.3 fL (81-99); Mean Platelet Vol. 11.3 fl (6.2-12.0); Platelet Count 215 K/mm3 (150-450); RBC Distribution Width CV 13.1 % (11.6-14.6); RBC Distribution Width SD 42.3 fl (35.1-43.9); Red Blood Count 3.36 M/mm3 (4.2-5.4); White Blood Count 16.8 K/mm3 (4.4-11.0)
[2019-04-19 07:50] VITALS: BP 99/56; PULSE 76; RESP 18; TEMP 36.7
[2019-04-19] MEDS: Senna/Docusate Sodium 1 Tablet PO (08:07)
--- NOTE | 2019-04-19 08:55 | PCM.PN.OB ---
Subjective: Feeling well, but cramps are intense with . Motrin and Tylenol are helping. Wants to discharge tomorrow. Objective: VSS. Hg 10.0. Fundus at u. Normal involution with lochia rubra. Denies passing clots. infant daughter well, with no questions or concerns. Is planning BTL, but wants contraception until then. States cannot use condoms and they will not remain celibate for 6 weeks. Told her with , a lot of options PP are not available. We will write for something at discharge after she considers her options. - Physical Exam Vitals/I&O's: Vital Signs Temp Pulse Resp BP 98.0 F 76 18 99/56 L 04/19/19 07:50 04/19/19 07:50 04/19/19 07:50 04/19/19 07:50 Oxygen Delivery Method Room Air Weight: 109.8 kg Body Mass Index (BMI) 36.8 Intake and Output for Last 24 Hours 04/17/19 04/18/19 04/19/19 23:59 23:59 23:59 Intake Total 2442.01 / 2442.01 Output Total 1050 / 1050 Balance 1392.01 / 1392.01 General: Alert, Oriented x3, Cooperative HEENT: Atraumatic, PERRLA, EOMI, Normocephalic Neck: Supple, No JVD, Negative Carotid Bruits Lungs: Clear to auscultation, Normal air movement Cardiovascular: Regular rate, No murmurs Abdomen: Bowel Sounds Present, Soft, Non Tender, Passing Flatus, - - fundus at u Extremities: No edema, Capillary Refill Less than 3 Seconds Skin: No rashes, No breakdown Musculoskeletal: No Tenderness to Palpation of Joints or Extremities Neurological: Cranial nerves II-XII grossly intact Psych/Mental Status: Normal Affect, Appropriate Laboratory Results 04/18/19 07:45: Blood Type A POSITIVE, Antibody Screen NEGATIVE 04/18/19 09:50: Urine Opiates Screen NEGATIVE, Urine Methadone Screen NEGATIVE, Ur Barbiturates Screen NEGATIVE, Ur Phencyclidine Scrn NEGATIVE, Ur Amphetamines Screen NEGATIVE, U Methamphetamin-MDMA NEGATIVE, U Benzodiazepines Scrn NEGATIVE, Urine Cocaine Screen NEGATIVE, U Cannabinoids Screen NEGATIVE, Ur Drug Screen Comment 04/19/19 04:10: WBC 16.8 H, RBC 3.36 L, Hgb 10.0 L, Hct 30.0 L, MCV 89.3, MCH 29.8, MCHC 33.3, RDW Std Deviation 42.3, RDW Coeff of Yovany 13.1, Plt Count 215, MPV 11.3 Current Medications Acetaminophen (Tylenol) 1,000 mg PO Q8H PRN PRN PRN Reason: Pain Score 1-3/10 Last Admin: 04/18/19 23:49 Dose: 1,000 mg Documented by: Bisacodyl (Dulcolax) 10 mg RECTAL UD PRN PRN Reason: If no BM Dibucaine (Dibucaine) 1 applic TOPICAL TID PRN PRN; Protocol PRN Reason: Discomfort Hydrocortisone (Hytone) 1 applic TOPICAL TID PRN PRN; Protocol PRN Reason: Discomfort Ibuprofen (Motrin) 600 mg PO Q6H PRN PRN PRN Reason: Pain Score 1-310 Last Admin: 04/19/19 02:00 Dose: 600 mg Documented by: Methylergonovine Maleate (Methergine) 0.2 mg IM X1 PRN PRN Reason: Excess bleeding/uterine atony Last Admin: 04/18/19 17:36 Dose: 0.2 mg Documented by: Ondansetron HCl (Zofran) 4 mg IV Q4H PRN PRN PRN Reason: Nausea Senna/Docusate Sodium (Senokot-S, Marlin-Colace) 1 - 2 tablet PO DAILY PRN PRN PRN Reason: Constipation Last Admin: 04/19/19 08:07 Dose: 1 tablet Documented by: Simethicone (Mylicon) 80 mg PO PCHS PRN PRN Reason: Indigestion/Stomach pain Sodium Chloride () 5 - 15 ml IV UD PRN PRN Reason: SALINE FLUSH Last Admin: 04/18/19 19:57 Dose: 10 ml Documented by: Medical Necessity - Tobacco Use Smoking Status: Current every day smoker Assessment/Plan A: Post- day #1 female infant Normal involution, lochia and PP course P: Continue Motrin and Tylenol PRN, recommended Motrin around the clock for 48-72 hours d/t severe cramping Ask for help as needed Will plan contraception at discharge tomorrow
[2019-04-19 12:34] VITALS: BP 100/55; PULSE 78; RESP 18; TEMP 36.6
--- NOTE | 2019-04-19 16:00 | CASEMGMT ---
Social Work Assessment Labor and Delivery Unit Patient Address: [address] [place] [address] Patient Date of Referral: .; 04.19.2019 Time of Referral: 1843; 0648 Referred By: Alesha Chandler CNM; Dr. Ortega Date of Intervention: 04.19.2019 Time of Intervention: 1500 Reason for Referral: maternal history of marijuana use in , bipolar disorder, depression, PPD, support, resources, and housing. History obtained from: mother of baby (MOB) Yissel Farnsworth, medical records including past social work assessments from prior deliveries in 2010 and 2013. Household composition: MOB, father of baby (FOB) Yann Farnsworth, and their older children are living with FOB?s parents. Patient's parent/guardian status: MOB who is age 27 and FOB who is age 28 are and have been together since 2010. MOB denies any form of abuse in this relationship. Past social work assessment indicates FOB with a history of anger outbursts, but MOB denied abuse at that time either. MOB and FOB now have 3 children together: Isaac (Born 01.29.2011), Eric (born 01.25.2014), and Horacio (Born 04.18.2018). Medical History: EMILIA is G3, P2 to 3 after delivering Horacio. EMILIA started care in the first trimester and appearing regular thereafter. EMILIA delivered Horacio who weighed 7 pounds 9 ounces at . Apgars 8 and 9 at 1 and 5 minutes of life. Educational Status: EMILIA graduated high school and has training in medical billing and coding. 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 EMILIA is able to read, write, and to understand what is read. 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 EDMAR gets SSI disability, about 783 a month. EDMAR is on disability related to his mental health diagnoses. Infant Supplies: EMILIA reports to have all needed supplies including a safe sleep space in the form of a pack-n-play. Also has a car seat, clothing, diapers, wipes. Will get a breast pump from [facility]. Planning to breast feed. Childcare/Caregiver(s): MOB and FOB. FOB does not work so is the caregiver when MOB is working. FOB?s parents are in the home and able to help too. Transportation: MOB report to have a test car driver?s license but has to use FOB?s mother?s car. Transportation is limited but reportedly adequate. Programs/Agencies Involved: MOB is active with S for food and medical. Active with WIC. Has the [employer] voucher, but reports cannot find a landlord to rent to the family due to FOB?s criminal record. No other agency involvement reported. Children Services/Legal Issues: No reported legal issues for self. MOB reports FOB has a legal history, but did not disclose what this is. MOB reported that FOB has been good for 2 years. MOB has history of children services involvement, with the first episode being after EMILIA's first delivery when a report was made due to marijuana use in and FOB?s actions during delivery admission. MOB reports during this assessment that children services have been involved with the family due to the oldest child being a habitual liar and talking to the school about people. MOB reports that children services have tried to go to court in the past, but due to the family having a good oxyhydrogen welder children services was ?stomped? on and did not win. MOB mentioned that children services have issues with MOB and FOB together, and did take issues with marijuana usage. Behavioral Health Issues: Mental Health History: Current care record indicates EMILIA has a history of depression, bipolar, PTSD, and schizophrenia. With EMILIA having history of psychiatric hospitalization about a year that involved depression and psychosis. During today?s assessment MOB reports only the depression, , and bipolar. MOB admits to psychosis at the time of the hospitalization. Denies PTSD or schizophrenia, reporting those diagnoses are actually the FOB?s. EMILIA reports as for herself, she stayed on medicine for a short time after getting out of the hospital but has gone off and does not like being on medicine. MOB denies PPD after second child. MOB denies any thoughts of suicide or thoughts of harming others. MOB reports she has learned to manage her mood by meditation and relaxation techniques. Family History: Chart indicates a sister is on the spectrum and one of MOB?s sons has history of seizures and speech issues. FOB reportedly has been diagnosed with Bipolar disorder, PTSD and per MOB ?schizophrenic tendencies.? MOB reports that medicine does not agree with EDMAR, that he has been suicidal while on medicine so no longer takes this. Substance Use History: MOB endorses history of opiate addiction, specifically to Percocet and Vicodin, which MOB reports she started taking for back issues during first and then continued. MOB admits she did not disclose to anyone at time of first child?s regarding opiate use in . MOB reports has been clean from opiates for 7 years now (though [facility] record indicates MOB has been sober for one year). EMILIA has long history of using marijuana, since teen years and use during prior pregnancies. MOB reports to this bid writer the use during this was prior to knowledge of and that the only reason MOB tested positive was due to using medical grade TCH with high concentration and used for back pain issues. Record indicates that MOB did continue to use marijuana during , which is incongruent to MOB's reports to this wrier. MOB denies use of alcohol. Denies any history of using meth, cocaine, or opiates such as heroin. MOB does smoke tobacco going from one pack a day to a half pack a day. Drug Screens: maternal screen positive on 09.08.2018 and on 02.02.2019 for marijuana. Negative at delivery on 04.18.2019. Baby?s urine is negative and meconium is pending. Family/Social Stressors: Per the chart, MOB and FOB lost housing and car broke down during the . MOB reports to this bid writer that lost home due to mold issues and the landlord being unwilling to get rid of the mold. MOB reports went through 2 [employer] vouchers during this , as cannot find a landlord to rent to the family, which is due to FOB having a criminal background. Transportation is limited as reliant on borrowing FOB?s mother?s car. FOB?s SSI check got messed up and reduced for a few months but is now back to normal. Support Systems: MOB reports FOB and FOB?s parents are primary support to MOB. MOB reports she has distanced herself from her family due to MOB?s family playing psychological mind games, as well as not liking FOB. MOB reports she has just started to talk to her father again and this is going okay. Depression/Shaken Baby/Safe Sleeping: MOB has been given information on safe sleeping, shaken baby, and depression. ASSESSMENT: MOB pleasant and cooperative with social work visit, talkative and overall nondefensive. MOB did appear guarded however about marijuana use, as evidenced by less expansive answers when this topic broached and MOB not having a clear answer about the positive drug screen in February, when initially stated that use was prior to knowledge. MOB did show irritation as evidenced by facial features constricting when the topic of children services broached. When geriatric social work professor acknowledged observation the MOB who voiced past experiences with children services. Talked with MOB about recommendation not to use marijuana while and that if would choose to use again then bottle-feeding would be recommended. MOB looked at this bid writer only, did not make much comment one way or the other on intention. MOB did hold normal eye contact and overall mood and affect was appropriate and congruent to content discussed. Did observe MOB to handle baby in a gentle, attentive, and loving way. MOB talked to the baby and kissed the baby. Baby did become quite fussy and MOB remained calm. At one point the baby was crying in a loud, intense way; shrill like with a high pitched cry. MOB laughed and told the baby that the baby is cute when the baby cries. MOB also made the comment that this bid writer was the only person to hear the baby?s high pitched cry. MOB did make the comment at one point that the baby is just like the FOB, trying to cover the face up when sleeping. MOB reports to feel a connection to the baby. Report to feel her support system is adequate and to have supplies to care for the baby. MOB denies any needs for home going. Interventions: MOB did accept resource information on [facility] agencies and depression. After meeting with MOB did call [facility]. Spoke with Emili in the intake department. Referral given due to substance exposed and other risk factors including maternal and paternal mental health history with neither of baby?s parents in treatment. Family?s past history with children services. Brief maternal and infant histories reported. Reported to nursing mother/child interactions made, including the baby?s cyring episode. Noted that baby sneezed at least 3-4 times during the crying. PLAN: MOB and baby to home when ready. Community resources provided. [facility] has been notified of concerns and made aware of discharge time frame. -POLO Pina, CHAINSTITCH BINDER
[2019-04-19 17:13] VITALS: BP 101/59; PULSE 80; RESP 20; TEMP 36.6
[2019-04-19 19:49] VITALS: BP 99/58; PULSE 92; RESP 17; TEMP 37.1; O2SAT 98
[2019-04-20 02:35] VITALS: BP 105/64; PULSE 77; RESP 16; TEMP 36.7; O2SAT 96
[2019-04-20 07:50] VITALS: BP 100/55; PULSE 83; RESP 14; TEMP 36.4
--- NOTE | 2019-04-20 08:51 | DCINST_ITS ---
Discharge Diet: No Restrictions Discharge Activity: Return to Normal Activity, May not drive while taking narcotic pain medications., May Shower May resume sexual activity in: 4-6 weeks - one week after bleeding has stopped Additional Activity Instructions:: Nothing in the vagina for 4-6 weeks. You may return to work/school in 6 weeks. Additional Instructions: If you experience any of the following, contact your healthcare provider. * Bleeding that soaks a pad every hour for 2 hours * Fever 100.4 or higher * Unrelieved incision or abdominal pain * Swelling, redness, discharge or bleeding from your incision or episiotomy site * Your incision begins to separate * Problems urinating (including inability to urinate or burning while urinating). * Visual changes * Severe headache * Flu-like symptoms * Pain or redness in one of both of your breasts * Pain, warmth, tenderness or swelling in your legs, especially the calf area * Frequent nausea and vomiting * Symptoms of depression or anxiety If you experience any of the following, call 911 or go to the nearest Emergency Room. * Chest pain * Problems breathing * Seizure activity * Partial or complete paralysis of a body part, slurred speech, weakness or drooping of the face, or a sudden inability to walk or hold your balance Allergies/Adverse Reactions: Allergies No Known Allergies Allergy (Verified 02/08/19 12:51) Medications to take at Discharge Vits [Prenatabs FA] 1 tab PO DAILY 10/18/18 Please Follow Up With: Pat Chandler CNM When: Call to make an appointment with your doctor in 6 weeks. If you have signs of PP depression to call office immediately. Test Results: Test results from this visit will be discussed in further detail at your follow- up appointment, if applicable. Proposed Discharge Date: 04/20/19
--- NOTE | 2019-04-20 08:51 | PCM.DCVAG ---
Discharge Diet: No Restrictions Discharge Activity: Return to Normal Activity, May not drive while taking narcotic pain medications., May Shower May resume sexual activity in: 4-6 weeks - one week after bleeding has stopped Additional Activity Instructions:: Nothing in the vagina for 4-6 weeks. You may return to work/school in 6 weeks. Additional Instructions: If you experience any of the following, contact your healthcare provider. Bleeding that soaks a pad every hour for 2 hours Fever 100.4 or higher Unrelieved incision or abdominal pain Swelling, redness, discharge or bleeding from your incision or episiotomy site Your incision begins to separate Problems urinating (including inability to urinate or burning while urinating). Visual changes Severe headache Flu-like symptoms Pain or redness in one of both of your breasts Pain, warmth, tenderness or swelling in your legs, especially the calf area Frequent nausea and vomiting Symptoms of depression or anxiety If you experience any of the following, call 911 or go to the nearest Emergency Room. Chest pain Problems breathing Seizure activity Partial or complete paralysis of a body part, slurred speech, weakness or drooping of the face, or a sudden inability to walk or hold your balance Allergies/Adverse Reactions: Allergies No Known Allergies Allergy (Verified 02/08/19 12:51) Medications to take at Discharge Vits [Prenatabs FA] 1 tab PO DAILY 10/18/18 Please Follow Up With: Pat Chandler CNM When: Call to make an appointment with your doctor in 6 weeks. If you have signs of PP depression to call office immediately. Test Results: Test results from this visit will be discussed in further detail at your follow-up appointment, if applicable. Proposed Discharge Date: 04/20/19
--- NOTE | 2019-04-20 08:58 | PCM.DC.SUM ---
Discharge Date and Diagnosis Date of Admission: 04/18/19 Date of Discharge: 04/20/19 - Primary Discharge Diagnosis Routine S/P Hospital Course and Treatment Summary of Care Provided: The patient is a 28 year old F [] s/p of a viable female. Day 2 . Doing well. Will get Depo shot prior to discharge and plans BTL after 6 weeks PP. Iron supplement ordered at discharge, to take until follow up appt in 6 weeks. To call office if signs of PPD. well, lanolin ointment ordered for nipple protection. Maternal UDS negative on admission and UDS negative. Understands although she quit smoking after she found out she was , if daughter has positive bowel drug screen, CPS will be called. To discharge home today. No other questions or concerns. Subjective: Feeling well. Daughter cluster fed last night and very tired today. Excited to go home to sons and . Bleeding is like a regular period. No other concerns. Objective: VSS. Fundus u/1. Lochia rubra moderate. daughter at nipple. Left nipple hardened and raw at 12 o'clock. - Physical Exam Vitals/I&O's: Vital Signs Temp Pulse Resp BP Pulse Ox 97.5 F L 83 14 100/55 L 96 04/20/19 07:50 04/20/19 07:50 04/20/19 07:50 04/20/19 07:50 04/20/19 02:35 Oxygen Delivery Method Room Air Weight: 109.8 kg Body Mass Index (BMI) 36.8 Intake and Output for Last 24 Hours 04/18/19 04/19/19 04/20/19 23:59 23:59 23:59 Intake Total 2442.01 / 2442.01 Output Total 1050 / 1050 Balance 1392.01 / 1392.01 General: Alert, Oriented x3, Cooperative HEENT: Atraumatic, PERRLA, EOMI, Normocephalic Neck: Supple, No JVD, Negative Carotid Bruits Lungs: Clear to auscultation, Normal air movement Cardiovascular: Regular rate, No murmurs Abdomen: Bowel Sounds Present, Soft, Non Tender, Passing Flatus, - - fundus u/1 Extremities: No edema, Capillary Refill Less than 3 Seconds Skin: No rashes, No breakdown Musculoskeletal: No Tenderness to Palpation of Joints or Extremities Neurological: Cranial nerves II-XII grossly intact Psych/Mental Status: Normal Affect, Appropriate Current Medications Acetaminophen (Tylenol) 1,000 mg PO Q8H PRN PRN PRN Reason: Pain Score 1-3/10 Last Admin: 04/18/19 23:49 Dose: 1,000 mg Documented by: Bisacodyl (Dulcolax) 10 mg RECTAL UD PRN PRN Reason: If no BM Dibucaine (Dibucaine) 1 applic TOPICAL TID PRN PRN; Protocol PRN Reason: Discomfort Hydrocortisone (Hytone) 1 applic TOPICAL TID PRN PRN; Protocol PRN Reason: Discomfort Ibuprofen (Motrin) 600 mg PO Q6H PRN PRN PRN Reason: Pain Score 1-3/10 Last Admin: 04/19/19 21:38 Dose: 600 mg Documented by: Methylergonovine Maleate (Methergine) 0.2 mg IM X1 PRN PRN Reason: Excess bleeding/uterine atony Last Admin: 04/18/19 17:36 Dose: 0.2 mg Documented by: Ondansetron HCl (Zofran) 4 mg IV Q4H PRN PRN PRN Reason: Nausea Senna/Docusate Sodium (Senokot-S, Marlin-Colace) 1 - 2 tablet PO DAILY PRN PRN PRN Reason: Constipation Last Admin: 04/19/19 08:07 Dose: 1 tablet Documented by: Simethicone (Mylicon) 80 mg PO PCHS PRN PRN Reason: Indigestion/Stomach pain Sodium Chloride () 5 - 15 ml IV UD PRN PRN Reason: SALINE FLUSH Last Admin: 04/18/19 19:57 Dose: 10 ml Documented by: Discharge Diet: No Restrictions Discharge Activity: Return to Normal Activity, May not drive while taking narcotic pain medications., May Shower May resume sexual activity in: 4-6 weeks - one week after bleeding has stopped Additional Activity Instructions:: Nothing in the vagina for 4-6 weeks. You may return to work/school in 6 weeks. Home Medications: Medications to take at Discharge Vits [Prenatabs FA] 1 tab PO DAILY 10/18/18 Ferrous Sulfate [Iron] 325 mg PO DAILY #60 tab 04/20/19 Following Prescrptions Were Given to Patient: Ferrous Sulfate [Iron] 325 mg PO DAILY #60 tab Transmission Status: Pending to [id number] Please Follow Up With: Pat Chandler CNM When: 6 weeks PP unless s/s of PPD then 2 weeks Patient Instructions: Medroxyprogesterone Acetate Suspension for injection [Contraception], Nutrition While , at Home, After a Vaginal , Understanding Depression Disposition: Home Minutes spent on discharge:: 60 Patient Condition:: Good Medical Necessity - Tobacco Use Smoking Status: Current every day smoker Meaningful Use Info Meaningful Use Diagnoses (Choose all that apply): None applicable
[2019-04-20] MEDS: MedroxyPROGESTERone 150 MG/ML Syringe IM (10:37)
--- NOTE | 2019-04-20 11:06 | NURSING ---
Talked with LATANYA Gramajo at this time. Dada PELAEZ stating LATANYA Tompkins spoke with pt yesterday and cleared to be discharged to home today.
== END 2019-04-20 12:20 | disposition home or self-care (01) | DRG 560 ==
PROVIDERS: Advanced Practice Midwife; Admitting Provider Obstetrics & Gynecology; Referring Provider Obstetrics & Gynecology; Visit Provider Obstetrics & Gynecology
DX: O75.9 Complication of labor and delivery, unspecified (principal); O99.324 Drug use complicating childbirth; F12.90 Cannabis use, unspecified, uncomplicated; O99.334 Smoking (tobacco) complicating childbirth; F17.210 Nicotine dependence, cigarettes, uncomplicated; Z97.5 Presence of (intrauterine) contraceptive device; Z3A.39 39 weeks gestation of pregnancy; Z37.0 Single live birth
CPT/HCPCS: 59050; 80307; 85025; 85027; 86850; 86900; 86901; 99218; J7120; A4216; G0378

== ENCOUNTER 2019-08-22 05:57 | Day surgery (SDC) | payer MEDICAID, SELFPAY ==
[2019-08-16 15:13] LABS: Hemoglobin 13.9 g/dL (12.0-15.0); Mean Corp Hgb Conc 32.3 g/dL (32-36); Mean Corpuscular Hgb 28.3 pg (27.0-32.0); Mean Corpuscular Volume 87.6 fL (81-99); Mean Platelet Vol. 11.4 fl (6.2-12.0); Platelet Count 254 K/mm3 (150-450); RBC Distribution Width CV 14.2 % (11.6-14.6); RBC Distribution Width SD 45.3 fl (35.1-43.9); Red Blood Count 4.91 M/mm3 (4.2-5.4); White Blood Count 8.1 K/mm3 (4.4-11.0)
[2019-08-16 15:20] LABS: Prothrombin Time (Protime)PT. 12.5 SECONDS (11.7-14.9)
[2019-08-16 15:38] LABS: Internal QC Validated? YES +Cl - CLEAR BKGD
[2019-08-16 15:39] LABS: Pregnancy, Serum, hCG Quali. NEGATIVE Negative
[2019-08-22] VITALS (7 sets, daily range): BP systolic 99–123; BP diastolic 59–89; PULSE 62–77; RESP 16–18; TEMP 36.7–36.9; O2SAT 98–100; BMI 36.7
[2019-08-22] MEDS: Lactated Ringers 1,000 ML 100 ML IV (06:34)
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
--- NOTE | 2019-08-22 07:30 | FALS_PTH ---
PATIENT: DIALLO REEVES [place] [facility] [id number] AGE/SX: 29/F ROOM: RE08/22/[address]: Dr. Fredrick Ayers MD : 1990 BED: DIS: 08/22/2019 SPEC #: [id number] RECD: 08/22/19 09:09 STATUS: LORA SAUD #: [id number] GUILLERMO: 08/22/19 07:[address]: Fredrick Ayers DEPT: SURGICAL PATHOLOGY RECD BY: Herve Vizcarra ENTERED: 08/22/19 10:58 SP TYPE: FALL TUBES OTHR DR: No Primary Care Phys Tissues: Fallopian tube Procedures: Surgery Specimen Level II HEADER OPERATION: Laparoscopic salpingectomy PRE-OP DIAGNOSIS: Elective sterilization TISSUE SUBMITTED: Bilateral fallopian tubes MICROSCOPIC DIAGNOSIS Bilateral fallopian tubes, salpingectomy: Fragments of bilateral fallopian tubes including fimbrial ends, no pathologic diagnosis. Bilateral paratubal cysts. SJ:juan jose 08/23/19 MICROSCOPIC DESCRIPTION Slides are reviewed. GROSS DESCRIPTION Received in fixative is one container labeled with the patient's name and designated bilateral fallopian tubes. The specimen consists of two fallopian tubes received in eight fragments and ranging in size from 1.5 to 5 cm. The fragments are not designated as to right or left. Two cystic structures each with an average diameter of 1.2 cm are present. Small Engine Technician sections are submitted in two cassettes. / AM:juan jose 08/22/19 TC:4 CPT: 16486 x2
--- NOTE | 2019-08-22 07:34 | OP.PCM_ITS ---
Report of Operation Date of Procedure: 08/22/19 Pre-Operative Diagnosis: Desires Permanent Sterilization Post-Operative Diagnosis: Desires Permanent Sterilization Surgery/Procedure Performed:: Laparoscopic Bilateral Salpingectomy Description of Surgical Findings:: Normal-appearing uterus fallopian tubes and ovaries. Type of Anesthesia:: General - Endotracheal Anesthesiologist: Elodia Heck Specimen's removed: Bilateral fallopian tubes Estimated Blood Loss (mL): Minimal Fluids Replaced: Crystalloid Description of Procedure: Surgeon: Fredrick Ayers MD, FACOG Indications: This is a 29 year old patient who has the above diagnosis. She has considered sterilization for quite some time. She is aware of the permanent nature of the procedure, the failure rate of 1-2%, and the availability of other nonpermanent control options. All questions were answered to consider the patient well-informed. Procedure: The patient was taken to the operating room where after induction of general anesthesia, she was placed in the dorsolithotomy position and prepped and draped in the usual sterile fashion. The bladder was drained of approximately 50 cc of clear yellow urine with a catheter. Anterior cervix was grasped with the tenaculum. Conn cannula was placed and attention was turned toward the laparoscopic portion of the procedure. Approximately 20 cc of half percent ropivacaine was injected subumbilically, suprapubically and midway between. A 5 mm bladeless trocar was placed subumbilically and intraperitoneal placement confirmed. After CO2 insufflation was complete, a 5 mm bladeless trocar was introduced suprapubically. The above findings were noted. An 5 mm blade less port was then placed midway between these 2 ports for tubal manipulation. Each fallopian tube was identified to its fimbriated end and an Enseal device was used to divide the mesosalpinx to the u terine fundus. Fallopian tubes were removed through the lower port. The peritoneal cavity and upper abdomen were examined and noted to be normal. Photographs were taken. Laparoscopic instruments with as much CO2 gas as possible were removed and incisions were closed with interrupted 4-0 Monocryl suture. Steri-Strips placed across the incision. Vaginal instruments were removed. Patient tolerated procedure well was taken to recovery room in satisfactory condition sponge instrument and needle counts were all reportedly correct. Estimated blood loss for the case was minimal. There were no apparent complications of the surgery. Grafts/Implants Used: None - Complications None - Admit VTE Documentation VTE Present on Admission: Yes VTE Mechan Device Prophylaxis: SCD's
--- NOTE | 2019-08-22 07:39 | DCINST_ITS ---
Discharge Diet: No Restrictions - Increase fluid intake for the next 48 hours. Discharge Activity: Return to Normal Activity, May Drive - when you are no longer taking pain/narcotic medicines., May Shower, May Take a Tub Bath May resume sexual activity in: 2 weeks Additional Activity Instructions:: Ambulate often the next week after surgery. Nothing in the vagina for 5 days. Call your doctor if your incision/area has: Continuous Slow Oozing, Sudden Increased Bleeding, Increased Pain/ Swelling, Increased Redness, Foul Smelling Discharge Call your doctor if you observe: Fever of 101 or Higher, Inability to urinate, Inability to have a bowel movement, Using more than one pad per hour Allergies/Adverse Reactions: Allergies No Known Allergies Allergy (Verified 08/15/19 09:52) Medications to take at Discharge Oxycodone [Oxyir] 5 mg PO Q6H PRN PRN 7 Days #7 tablet 08/22/19 The following prescriptions were given: Oxycodone [Oxyir] 5 mg PO Q6H PRN PRN 7 Days #7 tablet PRN Reason: Pain Score 6-10/10 Transmission Status: Received by TEO FARFAN [facility] Orders to be completed after discharge: CORONAVIRUS 19, LEISA Time Frame: 08/21/19, Facility: [facility], Location: Laboratory ,Urine Time Frame: 08/22/19, Facility: [facility], Location: Laboratory Primary Care Physician: Care Physician,No Primary [Primary Care Provider] - Test Results: Test results from this visit will be discussed in further detail at your follow- up appointment, if applicable. Please Follow Up With: Fredrick Ayers MD - [phone] When: 2 to 3 weeks
[2019-08-22] MEDS: Ropivacaine 0.5% 30 ML Vial (07:43)
== END 2019-08-22 10:45 | disposition home or self-care (01) ==
LOC: SDC 05:59 → AC 06:00
PROVIDERS: Referring Provider Obstetrics & Gynecology; Visit Provider Obstetrics & Gynecology
PROC: (CPT 58661; principal; 2019-08-22 07:15)
DX: Z30.2 Encounter for sterilization (principal); Z30.432 Encounter for removal of intrauterine contraceptive device; N83.8 Other noninflammatory disorders of ovary, fallopian tube and broad ligament; F17.210 Nicotine dependence, cigarettes, uncomplicated; F12.90 Cannabis use, unspecified, uncomplicated; Z11.59 Encounter for screening for other viral diseases
CPT/HCPCS: 00840; 58301; 58661; 36415; 84703; 85027; 85610; 85730; 86850; 86900; 86901; 87635; 88302; G2023; J7120; C1760; J2405; U0002

== ENCOUNTER 2019-10-15 21:38 | Emergency (ER) | payer MEDICAID, SELFPAY ==
[2019-08-22 06:10] VITALS: BMI 36.7
[2019-10-15 21:39] VITALS: BP 152/102; PULSE 100; RESP 16; TEMP 37.4; O2SAT 97; BMI 36.8
--- NOTE | 2019-10-15 22:08 | ED.VIS.GEN ---
History of Present Illness Chief Complaint: Allergic Reaction Informant: Patient Onset: Today Narrative: 29-year-old female presents with itching of her skin which started about 30 minutes ago while she was working at [employer]. She denies any new soaps, dyes, detergents, linens, perfumes. She states that she has worked at [employer] for a long time. She does not know what she came in contact with. She took Benadryl and her rash is resolved that she still has some itching. She does not have any shortness of breath, tightening of the throat, difficulty breathing, abdominal pain Past Medical History - Allergies and Home Meds Allergies/Adverse Reactions: Allergies No Known Allergies Allergy (Verified 10/15/19 21:41) Primary Care Physician: Care Physician,No Primary [Primary Care Provider] - Prior records reviewed: Yes Past Medical History: None Surgical History: noncontributory Smoking Status: Current every day smoker Alcohol: None Drugs: None Review of Systems General: Denies: Chills, Fever, Malaise Eyes: Denies: Visual changes - bilaterally, Diplopia ENT: Denies: Rhinorrhea, Sore throat Cardiovascular: Denies: Chest pain, Palpitations Respiratory: Denies: Dyspnea, Cough, Dyspnea on exertion Gastrointestinal: Denies: Abdominal pain, Nausea, Vomiting, Diarrhea, Melena, Hematochezia Genitourinary: Denies: Dysuria, Hematuria, Frequency Musculoskeletal: Denies: Back pain, Extremity Pain Skin: Denies: Rash, Abscess, Abrasions Neurological: Denies: Headache Allergy: Reports: Uticaria - resolved. Denies: Swelling of the mouth, Swelling of the tongue Physical Exam Vital Signs/Narrative: Vital Signs Temp Pulse Resp BP Pulse Ox 10/15/19 21:39 99.3 F H 100 16 152/102 H 97 General: Well nourished, Well developed, No Acute Distress Head: Normocephalic Eyes: Perrl, EOMI ENT: Moist mucous membranes, No rhinorrhea Neck: Supple, Nontender Cardiovascular: Regular rate, Regular rhythm Respiratory: No distress, CTA bilaterally, Chest nontender. Negative for: Wheezing Abdomen: Soft, Nontender Skin: Normal color, No rash Neurological: Alert, Oriented x3 Diagnostic/Tx/Re-eval - Medical Decision Making Patient presents with concern for rash which is resolved prior to arrival. She did take Benadryl prior to coming. She states she still feels itchy. She does not know what she is come in contact with. She is not had this problem in the past. I counseled her that I would put her on a burst of prednisone as well as give her prescription for Benadryl and Pepcid. She was amenable to this plan. Patient stable for discharge. Impression: #1 allergic reaction ED Disposition - Plan for ED Patient: Disposition: Home or Assisted Living Diagnosis: Allergic reaction Instructions: ED General Allergic Reactions Prescriptions: Prednisone [Deltasone] 60 mg PO DAILY #5 tab Prescription Printed Famotidine [Pepcid] 20 mg PO BID #20 tab Prescription Printed Referrals: Care Physician,No Primary [Primary Care Provider] -
[2019-10-15 22:16] VITALS: RESP 18
[2019-10-15] MEDS: predniSONE 20 MG Tablet 60 MG PO (22:16)
== END 2019-10-15 22:17 | disposition home or self-care (01) ==
PROVIDERS: Emergency Provider Student in an Organized Health Care Education/Training Program
DX: T78.40XA Allergy, unspecified, initial encounter (principal); F17.200 Nicotine dependence, unspecified, uncomplicated
CPT/HCPCS: 99283

== ENCOUNTER → 2019-12-21 09:10 | Outpatient (CLI) | payer MEDICAID, SELFPAY | DX: Z20.828 Contact with and (suspected) exposure to other viral communicable diseases (principal) | CPT/HCPCS: 87635; C9803; U0003 ==

== ENCOUNTER 2020-07-21 00:25 | Emergency (ER) | payer MEDICAID, SELFPAY ==
[2019-12-27 12:46] VITALS: BMI 36.8
[2020-07-21 00:26] VITALS: BP 146/108; PULSE 81; RESP 22; TEMP 37.1; O2SAT 99; BMI 36.8
[2020-07-21 00:39] VITALS: RESP 18
--- NOTE | 2020-07-21 01:40 | ED.RN ---
Pt requests a break before attempting additional IV draws
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
[2020-07-21 02:26] LABS: Internal QC Validated? YES +Cl - CLEAR BKGD
[2020-07-21 02:27] LABS: Pregnancy, Serum, hCG Quali. NEGATIVE Negative
[2020-07-21 02:32] LABS: Alcohol, Blood (Medical)-Serum < 3.0 mg/dL
[2020-07-21 02:37] LABS: Anion Gap 6 (5-15); BUN 13 mg/dL (7-18); Calcium,Total 8.5 mg/dL (8.5-10.1); Chloride 112 mmol/L (98-107); Creatinine, Serum 0.62 mg/dL (0.55-1.02); EST Glomerular Filtration Rate 121 mL/min (>60); Est Glom Filt Rate - Afr Amer 147 mL/min (>60); Estimated Creatinine Clearance 135.06 ml/min; Glucose 92 mg/dL (74-106); Potassium 3.5 mmol/L (3.5-5.1); Sodium Level 136 mmol/L (136-145)
[2020-07-21 02:39] VITALS: RESP 18
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
[2020-07-21 05:04] VITALS: RESP 16
== END 2020-07-21 05:04 | disposition home or self-care (01) ==
PROVIDERS: Emergency Provider Emergency Medicine; PCP Nurse Practitioner Primary Care
DX: F32.9 Major depressive disorder, single episode, unspecified (principal); F17.200 Nicotine dependence, unspecified, uncomplicated
CPT/HCPCS: 80048; 82077; 84703; 99282

== ENCOUNTER 2020-09-16 17:43 | Emergency (ER) | payer MEDICAID, SELFPAY ==
[2020-09-16 17:44] VITALS: BP 111/73; PULSE 80; RESP 16; TEMP 36.6; O2SAT 99; BMI 35.9
--- NOTE | 2020-09-16 19:07 | RAD_ITS ---
STUDY: X-RAY - LEFT FOOT CLINICAL: Female, 30 years old. foreign body plantar surface of the third digit TECHNIQUE: 3 view(s) of the foot. COMPARISON: None. FINDINGS: Small plantar calcaneal spur is present. No visualized radiopaque foreign body. Normal talus, calcaneus, and tarsal bones. Normal visualized subtalar, talonavicular, calcaneocuboid, tarsal and tarsometatarsal articulations. Normal metatarsi. Normal metatarsophalangeal joint of the great toe. Normal tibial and fibular sesamoid bones. Normal interphalangeal joint of the great toe. Normal phalanges of the great toe. Normal second through fifth metatarsophalangeal joints. Normal interphalangeal joints and phalanges of the lesser toes. The soft tissue structures are unremarkable. There is no demonstrated fracture. RAD/Foot min 3 Views IMPRESSION: No visualized acute process. Electronically Signed: Catarino Kitchen MD at 20:34 EDT , Service support ,
--- NOTE | 2020-09-16 19:09 | EDS_ITS ---
HPI History of Present Illness Chief Complaint: Foreign Body Narrative Narrative: 30-year-old female presenting for evaluation of left foot wound. Patient states she woke up this morning and found a piece of wood and a needle in her foot. She states she pulled these out. She states it is only minimally painful when she ambulates. She does not know how these got in her foot. She has not had drainage or discharge. There is no redness. She has no systemic signs or symptoms PFSH PFS Medical History (Updated 09/16/20 @ 19:15 by Philomena Bradford) Depression Home Medications oxybutynin chloride 5 mg PO DAILY 07/21/20 [History Last Taken Unknown] cephalexin 500 mg PO TID #21 cap 09/16/20 [Rx Last Taken Unknown] Allergy/AdvReac Type Severity Reaction Status Date / Time No Known Allergies Allergy Verified 09/16/20 17:44 Social History Smoking Status: Current every day smoker tobacco type: cigarettes ROS ROS ED Constitutional Constitutional ED: Denies chills, fever(s) or sweats Eyes Eyes: Denies blurry vision or change in vision ENT ENT ED: Denies ear pain, rhinorrhea or sore throat Cardiovascular Cardiovascular: Denies chest pain, palpitations or racing heartbeat Respiratory/Chest Respiratory/Chest: Denies cough, dyspnea or sputum Gastrointestinal Gastrointestinal: Denies abdominal pain, constipation, diarrhea or vomiting Genitourinary Genitourinary ED: Denies dysuria, hematuria or urinary frequency Musculoskeletal Musculoskeletal: Denies arthralgias, myalgias or neck pain Integumentary Reports other Details: Superficial left foot wound ; Denies abscess or rash Neurologic Neurologic: Denies headache(s), paresthesias or weakness Psychiatric Psychiatric: Denies anxiety, depression, suicidal ideation or suicidal thoughts Endocrine Endocrinology: Denies polydipsia or polyuria EXAM Physical Exam Const Vital Signs: 09/16/20 17:44 Temperature 97.8 F Temperature Source Temporal Pulse Rate 80 Respiratory Rate 16 Blood Pressure 111/73 Blood Pressure Mean 85 Pulse Ox 99 Oxygen Delivery Method Room Air Positive well nourished General Appearance ED: NAD HEENT Reports moist mucous membranes Negative for trauma Eyes EOMs intact bilaterally Resp normal respiratory effort and clear to auscultation bilaterally Extremity Extremity Narrative: Superficial wound on the plantar surface of the left foot. There is no redness or swelling. No drainage. Left foot is neurovascular intact with prescription for all 5 toes. Skin Skin Narrative: See exam under extremity MDM MDM MDM Narrative Medical decision making narrative: Patient presented for concern for possible foreign body remaining in her left foot. I do not find any evidence of this here. There is no sign of cellulitis. I did obtain an x-ray of the left foot which has interpreted by myself shows no acute fracture or subluxation and there are no visualized foreign bodies. The radiologist does agree. Patient is counseled to try to keep her foot clean and dry. She has concerned that she works at [employer] and works long hours and that the foot will be infected. I did give her a [id number] prescription for Keflex. She is counseled to keep her foot clean and dry other than work. She acknowledges understanding. She is given return precautions. Patient stable discharge. Impression: 1 foreign body left foot?resolved Radiography Diagnostic Testing: Radiology Impression Foot X-Ray 09/16/20 19:07 IMPRESSION: No visualized acute process. Electronically Signed: Catarino Kitchen MD at 20:34 EDT , Service support , Discharge Plan Triage Chief Complaint: Foreign Body ED Provider: Christopher Tolbert Dx/Rx/DC Orders Instructions: ED Foreign Body Soft Tissue Prescriptions: New cephalexin 500 mg capsule 500 mg PO TID Qty: 21 RF: 0 No Action oxybutynin chloride 5 MG tablet 5 mg PO DAILY RF: 0 Primary Care Provider: Jennifer Levine NP Referrals: Jennifer Levine NP, [facility] [Primary Care Provider] - Disposition Disposition: Home, self care Discharge Date/Time: 09/16/20 21:06
== END 2020-09-16 21:06 | disposition home or self-care (01) ==
PROVIDERS: Emergency Provider Student in an Organized Health Care Education/Training Program; PCP Nurse Practitioner Primary Care
DX: S90.852A Superficial foreign body, left foot, initial encounter (principal); F17.210 Nicotine dependence, cigarettes, uncomplicated
CPT/HCPCS: 73630; 99282

== ENCOUNTER 2020-11-06 11:28 | Emergency (ER) | payer MEDICAID, SELFPAY ==
[2020-11-06 11:30] VITALS: BP 118/77; PULSE 93; RESP 16; TEMP 37.1; O2SAT 98; BMI 36.1
[2020-11-06 12:28] VITALS: RESP 16
--- NOTE | 2020-11-06 12:52 | EDS_ITS ---
HPI HPI - Psych History of Present Illness Chief Complaint: Depression Informant: patient Narrative Narrative: Patient was brought in under pink slip for possible suicidal thoughts. She admits that she and her have been having marital issues as well as some child issues. She is working with [employer]. She is also seeing a counselor about every 3 weeks. She does have a history of depression. She used to be on medicines years ago but does not recall the names. She has never attempted suicide before. Her and her were in an argument today. He was stating that she does not do any work around the house or do any of the things she should do. She made a statement such as what do you want me to do, kill myself? She mentioned taking pills. She states she was just trying to get this argument and. She did not mean those things. She is not actually suicidal. However, she admits that for the last week she has been off work and really did nothing. She states she has no energy. She does feel depressed. She also had depression badly with her first child 9 years ago. She feels she does need help to get herself feeling better. She admits she does have depression and think she needs treatment. She does not feel as though she needs admission at this time. Nothing specifically makes her symptoms better. Increased stress at home makes them worse. [facility] Medical History Depression Allergy/AdvReac Type Severity Reaction Status Date / Time No Known Allergies Allergy Verified 11/06/20 11:29 Social History Smoking Status: Current every day smoker tobacco type: cigarettes ROS ROS ED Constitutional Constitutional ED: Denies fever(s), subjective or weight loss Eyes Eyes: Denies blurry vision ENT ENT ED: Denies rhinorrhea Cardiovascular Cardiovascular: Denies chest pain Respiratory/Chest Respiratory/Chest: Denies cough or dyspnea Gastrointestinal Gastrointestinal: Denies abdominal pain, diarrhea, nausea or vomiting Genitourinary Genitourinary ED: Denies dysuria Musculoskeletal Musculoskeletal: Denies myalgias Integumentary Denies rash Neurologic Neurologic: Denies headache(s) Psychiatric Psychiatric: Reports depression; Denies anxiety, suicidal ideation or suicidal thoughts Endocrine Endocrinology: Denies polydipsia or polyuria Hematologic/Lymphatic Hematologic/Lymphatic: Denies easy bleeding or easy bruising EXAM Physical Exam Const Vital Signs: 11/06/20 11:30 11/06/20 12:28 11/06/20 13:00 Temperature 98.8 F Temperature Source Temporal Pulse Rate 93 Respiratory Rate 16 16 15 Blood Pressure 118/77 Blood Pressure Mean 90 Pulse Ox 98 Oxygen Delivery Method Room Air Positive well nourished and well developed; Negative for unkempt General Appearance ED: well developed and NAD; Negative for unkempt HEENT normocephalic and atraumatic Eyes PERRL and EOMs intact bilaterally Neck no lymphadenopathy Resp normal respiratory effort Cardio Rate: regular rate Rhythm: regular rhythm GI non-tender and non-distended Palpation: soft Back/Spine no CVA tenderness Neuro oriented x3 Sensorium / Orientation: alert Psych Psych Narrative: Patient is very slightly tearful. However, she makes good eye contact. She seems very honest with all the events that occurred today. She is somewhat embarrassed about her statements. However she admits she needs help and she does want help. She does have a positive outlook for the future. Appearance: Negative for unkempt Skin Lesions: no lesions Rashes: no rashes MDM MDM MDM Narrative Medical decision making narrative: Our high school social studies tutor has also seen and talk with this patient for quite some time. She and I agree that we do not think this patient is suicidal. She certainly made some statements today but she admits those freely. She made those under a time of stress. She has been very open and honest with all her issues. She is also open that she is in need of help and very willing to get help. We now have an appointment with her primary and with behavioral health services. If she has any thoughts or issues in the meantime she can come back. Discharge Plan Triage Chief Complaint: Depression ED Provider: Naun Powers Dx/Rx/DC Orders Clinical Impression: Acute reaction to stress, No suicidal thoughts Instructions: ED Depression Primary Care Provider: Jennifer Levine NP Referrals: Jennifer Levine NP, FUNDRAISING SALE REPRESENTATIVE-C [Primary Care Provider] - Keep Mehreen appointment Disposition Disposition: Home, Self Care
[2020-11-06 13:00] VITALS: RESP 15
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
[2020-11-06 13:40] VITALS: BP 134/69; PULSE 71; RESP 15; O2SAT 98
== END 2020-11-06 13:41 | disposition home or self-care (01) ==
PROVIDERS: Emergency Provider Emergency Medicine; PCP Nurse Practitioner Primary Care
DX: F43.0 Acute stress reaction (principal); F32.9 Major depressive disorder, single episode, unspecified; F17.210 Nicotine dependence, cigarettes, uncomplicated
CPT/HCPCS: 99284

== ENCOUNTER 2021-03-07 12:26 | Emergency (ER) | payer MEDICAID, SELFPAY ==
[2021-03-07 12:28] VITALS: BP 117/77; PULSE 116; RESP 17; TEMP 36.3; O2SAT 99; BMI 34.9
--- NOTE | 2021-03-07 12:59 | EDS_ITS ---
HPI History of Present Illness Chief Complaint: Headache Informant: patient Narrative Narrative: 30-year-old female states about a week ago she began to have a headache located generalized in the frontal region. She states now she has developed intermittent pain in the right methodist that spreads down the face onto the neck to the posterior aspect of the upper thoracic region. This then results in her having a spasm that since her head to the left. She went to urgent care was given a medicine that begins with a T that is 10 mg but does not know the name of it. Since that has been in her system which she describes as a muscle relaxant she has been doing better but is still coming so she knew she needed to come right to the hospital. She has no working phone so she has not been able to contact her doctor. She has no fever and denies any rash. No infe ctious symptoms. No arm or leg symptoms PFSH PFSH Medical History (Updated 03/07/21 @ 13:[address] Hoang Chan DO) Depression Neuropathy Home Medications diazepam 5 mg PO Q8 PRN #15 tab 03/07/21 [Rx Last Taken Unknown] gabapentin 300 mg PO TID 03/07/21 [History Last Taken Unknown] hydrocodone-acetaminophen 1 tab PO Q6H PRN PRN 3 Days #12 tablet 03/07/21 [Rx Last Taken Unknown] ibuprofen 600 mg PO Q6H PRN 03/07/21 [History Last Taken Unknown] ketorolac [Toradol] 10 mg PO Q6H PRN 03/07/21 [History Last Taken Unknown] Allergy/AdvReac Type Severity Reaction Status Date / Time No Known Allergies Allergy Verified 03/07/21 12:26 Social History (Updated 03/07/21 @ 12:[address] Hoang Chan DO) Smoking Status: Current every day smoker tobacco type: cigarettes substance use type: does not use ROS ROS ED Constitutional Constitutional ED: Denies chills, fever(s) or weight loss Eyes Eyes: Denies change in vision or diplopia ENT ENT ED: Denies ear pain, rhinorrhea or sore throat Cardiovascular Cardiovascular: Denies chest pain, orthopnea, palpitations or racing heartbeat Respiratory/Chest Respiratory/Chest: Denies cough, dyspnea or orthopnea Gastrointestinal Gastrointestinal: Denies abdominal pain, diarrhea, nausea or vomiting Genitourinary Genitourinary ED: Denies dysuria, hematuria or urinary frequency Musculoskeletal Musculoskeletal: Reports neck pain; Denies arthralgias or myalgias Integumentary Denies abscess or rash Neurologic Neurologic: Reports headache(s); Denies weakness Psychiatric Psychiatric: Denies anxiety, depression, suicidal ideation or suicidal thoughts Endocrine Endocrinology: Denies polydipsia, polyphagia or polyuria Allergic/Immunologic Allergic/Immunologic ED: Denies mouth swelling, tongue swelling or urticaria EXAM Physical Exam Const Vital Signs: 03/07/21 12:28 Temperature 97.3 F L Temperature Source Temporal Pulse Rate 116 H Respiratory Rate 17 Blood Pressure 117/77 Blood Pressure Mean 90 Pulse Ox 99 Oxygen Delivery Method Room Air Positive well nourished, well developed and obese General Appearance ED: well developed Nutritional Appearance: obese HEENT Reports normocephalic, head/scalp atraumatic, TM's clear and moist mucous membranes HEENT Narrative: There is no tenderness over the temporal artery. I see no rashes. External auditory canal appears normal. No mastoid tenderness. Negative for trauma Tympanic Membrane ED: Yes TM's clear Eyes PERRL and EOMs intact bilaterally Neck no lymphadenopathy, supple and no JVD Resp normal respiratory effort and clear to auscultation bilaterally Cardio regular rate, regular rhythm and no murmurs GI normal to inspection, nondistended, normoactive bowel sounds and non-tender Palpation: soft Back/Spine no CVA tenderness and normal ROM Extremity normal to inspection General Extremety ED: Negative for edema General Extremity: Negative for edema Neuro oriented x3 and CN's II-XII intact bilaterally Sensorium / Orientation: alert Motor Exam: strength 5/5 throughout Psych mental status grossly normal Mood & Affect: Negative for depressed or tearful Skin no rashes or lesions noted and no wounds Discharge Plan Triage Chief Complaint: Headache ED Provider: Hoang Chan Dx/Rx/DC Orders Clinical Impression: Cephalalgia, Cervical paraspinal muscle spasm Prescriptions: New hydrocodone-acetaminophen [hydrocodone-acetaminophen] 1 TABLET tablet 1 tab PO Q6H PRN PRN (Reason: Pain) 3 Days Qty: 12 RF: 0 diazepam [diazepam] 5 MG tablet 5 mg PO Q8 PRN (Reason: Muscle Spasm) Qty: 15 RF: 0 No Action ketorolac [Toradol] 10 mg Tablet 10 mg PO Q6H PRN (Reason: Pain) RF: 0 ibuprofen 600 mg Tablet 600 mg PO Q6H PRN (Reason: Pain) RF: 0 gabapentin 300 mg Tablet 300 mg PO TID RF: 0 Primary Care Provider: Jennifer Levine NP Referrals: Jennifer Levine NP, TRANSPLANT REGISTERED NURSE-C [Primary Care Provider] - As soon as possible Activity Restrictions/Additional Instructions: Please stop your other medication. Since I do not know what it is I do not want there to be medication interactions. We will be starting you on Valium which may make you sedated. I would recommend continued scheduled anti-inflammatories such as Advil 600 mg every 6 hours. Disposition Disposition: Home, Self Care
== END 2021-03-07 13:42 | disposition home or self-care (01) ==
LOC: ED 13:07
PROVIDERS: Emergency Provider Emergency Medicine; PCP Nurse Practitioner Primary Care
DX: R51.9 Headache, unspecified (principal); M62.838 Other muscle spasm; F17.210 Nicotine dependence, cigarettes, uncomplicated; E66.9 Obesity, unspecified; Z79.899 Other long term (current) drug therapy
CPT/HCPCS: 99282; A4216

== ENCOUNTER 2021-03-14 17:22 | Emergency (ER) | payer MEDICAID, SELFPAY ==
[2021-03-14 17:23] VITALS: BP 139/88; PULSE 90; RESP 16; TEMP 35.7; O2SAT 97; BMI 78.7
--- NOTE | 2021-03-14 18:17 | CASEMGMT ---
SW Note Referral Source: Md Referral Reason: detox SW was advised that patient wants detox and inpatient. RN said that patient as 3 children and her has custody. Patient's drug of choice include meth, fentanyl and cocaine and has been using since age 16. SW called Treatment Navigator, Matthew, and Matthew spoke to patient about plans regarding treatment. Of note, Jessica FOSTER stated that they talked to [facility] who reports no beds for admission due to the pandemic. Plan: To be determined Cheyanne CUELLAR
[2021-03-14 18:29] LABS: Mucous, Urine 0 SEEN /hpf (<or=2+); Red Blood Cells-Urine 0 SEEN /hpf (0-5)
[2021-03-14 18:31] LABS: Glucose, Dipstick Normal (Normal); Ketone-Dipstick Negative (Negative); Leukocyte Esterase-Dipstick 500 /ul (Negative); Nitrite-Dipstick Positive (Negative); Occult Blood-Urine 10 /ul (Negative); Protein-Dipstick 15 mg/dl (Negative); Urine Bilirubin Dipstick Negative (Negative); Urine Urobilinogen Normal (Normal); Urine pH 6.5 (5.0 - 8.0)
[2021-03-14 18:36] LABS: Color, Urine Yellow (Yellow); Urine Clarity Clear (Clear)
[2021-03-14 18:40] LABS: Bacteria 3+ /hpf (None Seen); Squamous Epithelial Cells - UA 5-10 SEEN /hpf (5-10); White Blood Cells 10-25 SEEN /hpf (0-5)
[2021-03-14 18:44] LABS: Amphetamine Urine VISTA NEGATIVE (<1000 ng/mL); Barbiturate Urine VISTA NEGATIVE (< 200 ng/mL); Benzodiazepine Urine VISTA POSITIVE (< 200 ng/mL); Cocaine Urine VISTA NEGATIVE (< 300 ng/mL); Ecstacy Urine VISTA NEGATIVE (< 500 ng/mL); Methadone Urine VISTA NEGATIVE (< 300 ng/mL); PCP Urine VISTA NEGATIVE (< 25 ng/mL); THC Urine VISTA POSITIVE (< 50 ng/mL); Vista UDS pH Range 6
[2021-03-14 18:49] LABS: Absolute Lymphocyte Count 3.49 X10^3/uL (0.83-4.51); Absolute Neutrophil Count 7.2 X10^3/uL (2.0-7.7); Basophil# 0.12 X10^3/uL; Eosinophil# 0.27 X10^3/uL; Eosinophils% 2.2 % (0-5); Hematocrit 39.8 % (37-47); Hemoglobin 12.9 g/dL (12.0-15.0); Lymphocyte # 3.49 X10^3/ul (0.83-4.51); Lymphocyte % 28.3 % (19-41); Mean Corp Hgb Conc 32.4 g/dL (32-36); Mean Corpuscular Volume 89.4 fL (81-99); Mean Platelet Vol. 9.6 fl (6.2-12.0); Monocyte# 0.66 X10^3/uL; Monocyte% 5.3 % (0-10); NRBC Flagged by Analyzer 0 % (0-5); Neutrophil # 7.21 X10^3/uL (2.7-7.7); Neutrophil % 58.4 % (47-70); Platelet Count 538 K/mm3 (150-450); RBC Distribution Width CV 13.9 % (11.6-14.6); RBC Distribution Width SD 45.4 fl (35.1-43.9); Red Blood Count 4.45 M/mm3 (4.2-5.4); White Blood Count 12.3 K/mm3 (4.4-11.0)
[2021-03-14 19:05] LABS: ALB/GLOB Ratio 0.6 RATIO (0.9-2.4); AST(SGOT) 11 U/L (15-37); Alanine Aminotransfer ALT/SGPT 23 U/L (13-56); Albumin, Serum 2.8 g/dL (3.2-5.0); Alkaline Phosphatase 86 U/L (45-117); Anion Gap 8 (5-15); BUN 11 mg/dL (7-18); BUN/Creat Ratio 17.1 RATIO (10-20); Calcium,Total 8.9 mg/dL (8.5-10.1); Chloride 110 mmol/L (98-107); Creatinine, Serum 0.64 mg/dL (0.55-1.02); EST Glomerular Filtration Rate 116 mL/min (>60); Est Glom Filt Rate - Afr Amer 140 mL/min (>60); Estimated Creatinine Clearance 130.84 ml/min; Globulin 4.7 g/dL (2.2-4.2); Glucose 114 mg/dL (74-106); Potassium 3.5 mmol/L (3.5-5.1); Protein, Total 7.5 g/dL (6.4-8.2); Sodium Level 144 mmol/L (136-145)
--- NOTE | 2021-03-14 19:14 | CM.ED ---
LATANYA Note LATANYA called Treatment Navigator and spoke to Matthew. Matthew requested that the phone be taken to patient and she will speak to patient in her room regarding programming. LATANYA spoke to patient after she got off the phone with Matthew. Patient said that her plan is to stay with her in laws as she wants to get clean this weekend and if someone is with her the whole time she will be clean. Patient said that on Tuesday [facility] is off quarantine and then she can go there and get into the residential treatment program. Patient said that Matthew also gave her the number for [facility]. Latanay encouraged patient to call her in laws regarding this plan. LATANYA was advised by RN that patient had stated her in laws stated they can watch her over the weekend so she doesn't use. LATANYA spoke to Matthew. Matthew said that patient has 2 plans 1) go to a safe place and follow up with [facility] for residential on Tuesday and 2) [facility] and their 25/10 number. Matthew said that when talking to patient the patient had stated that she did not feel she needed detox. LATANYA updzhanna RN and MD. Plan: Patient will be discharged from the ED. Follow up with [facility] CUELL[facility]
--- NOTE | 2021-03-14 19:34 | EDS_ITS ---
HPI History of Present Illness Chief Complaint: Substance Abuse Informant: patient Onset/Context/Timing Onset: Days (2) Context: Gradual Onset Timing: Continuous Worsened by: Nothing Relieved by: Nothing Associated Symptoms Associated Symptoms: Positive for vomiting*; Negative for diarrhea*, fever*, rash*, seizure, tremor, palpatations, suicidal ideation and homicidal ideation Narrative Narrative: Patient presents requesting detox from fentanyl, cocaine, and methamphetamines. Patient states her last use was approxione and 1/2 days ago. Patient states she normally snorts her drugs. Patient denies any IV use. Dinorah ent states that she has been having some episodes of vomiting. Patient also admits to episodes of anger. Patient also admits to episodes of crying. Patient denies any diarrhea. Patient denies any fevers. Patient denies any seizures. Patient denies any suicidal or homicidal ideations. [facility] Medical History Depression Neuropathy Home Medications diazepam 5 mg PO Q8 PRN #15 tab 03/07/21 [Rx Last Taken Unknown] gabapentin 300 mg PO TID 03/07/21 [History Last Taken Unknown] hydrocodone-acetaminophen 1 tab PO Q6H PRN PRN 3 Days #12 tablet 03/07/21 [Rx Last Taken Unknown] ibuprofen 600 mg PO Q6H PRN 03/07/21 [History Last Taken Unknown] ketorolac [Toradol] 10 mg PO Q6H PRN 03/07/21 [History Last Taken Unknown] sulfamethoxazole-trimethoprim 1 tab PO BID #6 tablet 03/14/21 [Rx Last Taken Unknown] Allergy/AdvReac Type Severity Reaction Status Date / Time No Known Allergies Allergy Verified 03/14/21 17:26 Social History Smoking Status: Current every day smoker tobacco type: cigarettes substance use type: does not use ROS ROS ED Constitutional Constitutional ED: Denies chills or fever(s) Eyes Eyes: Denies blurry vision or change in vision ENT ENT ED: Reports rhinorrhea; Denies sore throat Cardiovascular Cardiovascular: Denies chest pain or palpitations Respiratory/Chest Respiratory/Chest: Reports cough; Denies dyspnea Gastrointestinal Gastrointestinal: Reports nausea and vomiting Genitourinary Genitourinary ED: Denies dysuria or hematuria Musculoskeletal Musculoskeletal: Reports back pain and neck pain Integumentary Denies abscess or rash Neurologic Neurologic: Denies headache(s) or weakness Allergic/Immunologic Allergic/Immunologic ED: Denies mouth swelling or urticaria EXAM Physical Exam Const Vital Signs: 03/14/21 17:23 Temperature 96.3 F L Temperature Source Temporal Pulse Rate 90 Respiratory Rate 16 Blood Pressure 139/88 H Blood Pressure Mean 105 Pulse Ox 97 Oxygen Delivery Method Room Air Positive well nourished, well developed and obese General Appearance ED: well developed Nutritional Appearance: obese HEENT Reports moist mucous membranes Neck supple and no JVD Resp normal respiratory effort and clear to auscultation bilaterally Cardio regular rate, regular rhythm and no murmurs GI normal to inspection, nondistended, normoactive bowel sounds and non-tender Palpation: soft Extremity normal to inspection General Extremety ED: Negative for edema or tenderness General Extremity: Negative for edema Neuro oriented x3, CN's II-XII intact bilaterally and no sensory deficits noted Sensorium / Orientation: alert Motor Exam: strength 5/5 throughout Psych mental status grossly normal Skin no rashes or lesions noted MDM MDM MDM Narrative Medical decision making narrative: CBC shows a mild leukocytosis of 12.3. Platelets were slightly elevated at 538. Urine screen was positive for benzodiazepines. Comprehensive metabolic profile was within normal limits. Urinalysis shows leukocyte esterase of 500 with 10-25 white blood cells and 3+ bacteria. There were positive nitrites. Serum alcohol level was normal. Patient was advised of her findings. Patient was given a dose of Bactrim here. Patient was given a prescription for Bactrim. Social work was in to talk to the patient. Patient states she no longer feels like she needs detox. Patient has been set up for outpatient treatment for opiate abuse. Patient understands and is agreeable with the plan. All questions were answered. Lab Data Attestation: I reviewed the patient's lab results. Labs: Laboratory Results - last 24 hr 03/14/21 03/14/21 03/14/21 18:10 18:10 18:35 WBC 12.3 H RBC 4.45 Hgb 12.9 Hct 39.8 MCV 89.4 MCH 29.0 MCHC 32.4 RDW Std Deviation 45.4 H RDW Coeff of Yovany 13.9 Plt Count 538 H MPV 9.6 Immature Gran % (Auto) 4.800 H Neut % (Auto) 58.4 Lymph % (Auto) 28.3 [place] % (Auto) 5.3 Eos % (Auto) 2.2 Baso % (Auto) 1.0 Absolute Neuts (auto) 7.2 Absolute Lymphs (auto) 3.49 Nucleated RBC % 0 Sodium Potassium Chloride Carbon Dioxide Anion Gap BUN Creatinine Estim Creat Clear Calc Est GFR (MDRD) Af Amer Est GFR (MDRD) Non-Af BUN/Creatinine Ratio Glucose Calcium Total Bilirubin AST ALT Alkaline Phosphatase Total Protein Albumin Globulin Albumin/Globulin Ratio Urine Color Yellow Urine Clarity Clear Urine pH 6.5 Ur Specific [place] 1.010 Urine Protein 15 H Urine Glucose (UA) Normal Urine Ketones Negative Urine Occult Blood 10 H Urine Nitrite Positive H Urine Bilirubin Negative Urine Urobilinogen Normal Ur Leukocyte Esterase 500 H Urine RBC 0 SEEN Urine WBC 10-25 SEEN Ur Squamous Epith Cells 5-10 SEEN Urine Bacteria 3+ Urine Mucus 0 SEEN Urine Opiates Screen NEGATIVE Urine Methadone Screen NEGATIVE Ur Barbiturates Screen NEGATIVE Ur Phencyclidine Scrn NEGATIVE Ur Amphetamines Screen NEGATIVE U Methamphetamin-MDMA NEGATIVE U Benzodiazepines Scrn POSITIVE H Urine Cocaine Screen NEGATIVE U Cannabinoids Screen POSITIVE H Ur Drug Screen Comment Ethyl Alcohol 03/14/21 03/14/21 18:35 18:35 WBC RBC Hgb Hct MCV MCH MCHC RDW Std Deviation RDW Coeff of Yovany Plt Count MPV Immature Gran % (Auto) Neut % (Auto) Lymph % (Auto) [place] % (Auto) Eos % (Auto) Baso % (Auto) Absolute Neuts (auto) Absolute Lymphs (auto) Nucleated RBC % Sodium 144 Potassium 3.5 Chloride 110 H Carbon Dioxide 26.0 Anion Gap 8 BUN 11 Creatinine 0.64 Estim Creat Clear Calc 130.84 Est GFR (MDRD) Af Amer 140 Est GFR (MDRD) Non-Af 116 BUN/Creatinine Ratio 17.1 Glucose 114 H Calcium 8.9 Total Bilirubin 0.10 L AST 11 L ALT 23 Alkaline Phosphatase 86 Total Protein 7.5 Albumin 2.8 L Globulin 4.7 H Albumin/Globulin Ratio 0.6 L Urine Color Urine Clarity Urine pH Ur Specific [place] Urine Protein Urine Glucose (UA) Urine Ketones Urine Occult Blood Urine Nitrite Urine Bilirubin Urine Urobilinogen Ur Leukocyte Esterase Urine RBC Urine WBC Ur Squamous Epith Cells Urine Bacteria Urine Mucus Urine Opiates Screen Urine Methadone Screen Ur Barbiturates Screen Ur Phencyclidine Scrn Ur Amphetamines Screen U Methamphetamin-MDMA U Benzodiazepines Scrn Urine Cocaine Screen U Cannabinoids Screen Ur Drug Screen Comment Ethyl Alcohol 5.0 Discharge Plan Triage Chief Complaint: Substance Abuse ED Provider: Ean Berg Dx/Rx/DC Orders Clinical Impression: Substance abuse, Urinary tract infection Instructions: ED Drug Abuse, ED CYSTITIS Female Adult Prescriptions: New sulfamethoxazole-trimethoprim [sulfamethoxazole-trimethoprim] 1 TABLET tablet 1 tab PO BID Qty: 6 RF: 0 No Action ketorolac [Toradol] 10 mg Tablet 10 mg PO Q6H PRN (Reason: Pain) RF: 0 ibuprofen 600 mg Tablet 600 mg PO Q6H PRN (Reason: Pain) RF: 0 gabapentin 300 mg Tablet 300 mg PO TID RF: 0 hydrocodone-acetaminophen [hydrocodone-acetaminophen] 1 TABLET tablet 1 tab PO Q6H PRN PRN (Reason: Pain) 3 Days Qty: 12 RF: 0 diazepam [diazepam] 5 MG tablet 5 mg PO Q8 PRN (Reason: Muscle Spasm) Qty: 15 RF: 0 Primary Care Provider: Jennifer Levine NP Referrals: Jennifer Levine NP, HUMAN SERVICES CASE MANAGER-C [Primary Care Provider] - 3-5 Days Disposition Disposition: Home, Self Care
[2021-03-14 19:45] VITALS: RESP 16
[2021-03-14] MEDS: Smz/Tmp Ds Tablet 1 TABLET PO (19:47)
== END 2021-03-14 19:52 | disposition home or self-care (01) ==
PROVIDERS: Emergency Provider Emergency Medicine; PCP Nurse Practitioner Primary Care
DX: F11.10 Opioid abuse, uncomplicated (principal); F14.10 Cocaine abuse, uncomplicated; F15.10 Other stimulant abuse, uncomplicated; N39.0 Urinary tract infection, site not specified; F17.210 Nicotine dependence, cigarettes, uncomplicated
CPT/HCPCS: 80053; 80307; 81001; 82077; 85025; 87086; 87088; 87186; 99283

== ENCOUNTER 2021-09-14 08:03 | Emergency (ER) | payer MEDICAID, SELFPAY ==
[2021-09-14 08:05] VITALS: BP 101/53; PULSE 114; RESP 18; TEMP 37.7; O2SAT 100; BMI 39.5
--- NOTE | 2021-09-14 08:17 | EX.ED.DYSGE1 ---
HPI History of Present Illness Chief Complaint: General Illness Detail of Chief Complaint: Cough, body aches, headache Informant: patient Onset/Context/Timing Onset: Days Context: Gradual Onset Narrative Narrative: Patient presents with 2 to 3-day history of nausea, vomiting, diarrhea. Overnight she developed body aches and significant headache. She has felt as if she had a fever but did not have a thermometer. She has not yet taken anything for symptoms. She did not receive the COVID-vaccine. 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 [facility] Medical History Depression Neuropathy Home Medications diazepam 5 mg PO Q8 PRN #15 tab 03/07/21 [Rx Last Taken Unknown] gabapentin 300 mg PO TID 03/07/21 [History Last Taken Unknown] hydroxyzine HCl 25 mg PO DAILY 09/14/21 [History Last Taken Unknown] loratadine 10 mg PO DAILY 09/14/21 [History Last Taken Unknown] omeprazole 10 mg PO DAILY 09/14/21 [History Last Taken Unknown] prazosin 2 mg PO DAILY 09/14/21 [History Last Taken Unknown] sertraline 50 mg PO DAILY 09/14/21 [History Last Taken Unknown] Allergy/AdvReac Type Severity Reaction Status Date / Time No Known Allergies Allergy Verified 03/14/21 17:26 Social History Smoking Status: Current every day smoker tobacco type: cigarettes substance use type: does not use ROS ROS ED Constitutional Constitutional ED: Reports fever(s) and subjective Eyes Eyes: Denies change in vision ENT ENT ED: Denies rhinorrhea or sore throat Cardiovascular Cardiovascular: Denies chest pain or palpitations Respiratory/Chest Respiratory/Chest: Reports cough, dyspnea and sputum Gastrointestinal Gastrointestinal: Reports diarrhea, nausea and vomiting Musculoskeletal Musculoskeletal: Reports myalgias Integumentary Denies rash Neurologic Neurologic: Reports headache(s); Denies weakness Psychiatric Psychiatric: Denies anxiety or depression Endocrine Endocrinology: Denies polydipsia or polyuria Allergic/Immunologic Allergic/Immunologic ED: Denies urticaria EXAM Physical Exam Const Vital Signs: 09/14/21 08:05 09/14/21 09:27 Temperature 99.9 F H Temperature Source Oral Pulse Rate 114 H Respiratory Rate 18 Respiratory Effort Normal Non-Labored Respiratory Pattern Normal Blood Pressure 101/53 L Blood Pressure Mean 69 Pulse Ox 100 Oxygen Delivery Method Room Air Positive well nourished and well developed General Appearance ED: well developed HEENT Reports moist mucous membranes Eyes PERRL and EOMs intact bilaterally Neck supple Resp normal respiratory effort and clear to auscultation bilaterally Cardio regular rate and regular rhythm GI non-tender Palpation: soft Extremity normal to inspection Neuro oriented x3 Sensorium / Orientation: alert Skin no rashes or lesions noted MDM MDM MDM Narrative Medical decision making narrative: Patient given IV fluids along with Toradol, Reglan, Benadryl. Lab work obtained along with chest x-ray and COVID/influenza swabs. Lab Data Attestation: I reviewed the patient's lab results. Labs: Laboratory Results - last 24 hr 09/14/21 09/14/21 09/14/21 08:47 08:47 08:47 WBC 6.5 RBC 4.50 Hgb 13.4 Hct 39.5 MCV 87.8 MCH 29.8 MCHC 33.9 RDW Std Deviation 44.1 H RDW Coeff of Yovany 13.6 Plt Count 227 MPV 11.3 Immature Gran % (Auto) 0.900 Neut % (Auto) 82.3 H Lymph % (Auto) 5.1 L Avery % (Auto) 9.7 Eos % (Auto) 1.4 Baso % (Auto) 0.6 Absolute Neuts (auto) 5.3 Absolute Lymphs (auto) 0.33 L Nucleated RBC % 0 Differential Comment Platelet Estimate ADEQUATE RBC Morphology NORM C+C Sodium 139 Potassium 3.9 Chloride 111 H Carbon Dioxide 18.0 L Anion Gap 10 BUN 11 Creatinine 0.61 Estim Creat Clear Calc 136.03 Est GFR (MDRD) Af Amer 147 Est GFR (MDRD) Non-Af 122 BUN/Creatinine Ratio 18.0 Glucose 93 Calcium 8.2 L Total Bilirubin 0.40 Direct Bilirubin 0.07 AST 12 L ALT 15 Alkaline Phosphatase 82 Total Protein 7.2 Albumin 4.0 Globulin 3.2 Serum , Qual NEGATIVE Radiography Chest X-Ray - ED: 1 View, Read by ED Physician and Chronic Changes Diagnostic Testing: Clinical Impression(s) from Imaging Studies Chest X-Ray 09/14/21 09:00 IMPRESSION: Bibasilar infiltrates worse on the left base. Electronically Signed: Manjit Gonzaels MD at 9:21 EDT , Treatment and Re-Evaluation Narrative: On repeat evaluation patient feels significantly improved. Lab work is unremarkable with a normal white count. She does have a slight left shift. Chemistry studies unremarkable and test negative. COVID and influenza swabs are negative. Chest x-ray per my interpretation reveals no obvious focal infiltrate, radiology feels there are bibasilar infiltrates. I believe the patient's symptoms are all viral in nature and these changes all represent viral etiology. I do not feel she requires antibiotics at this time. She will continue supportive care at home. Discharge Plan Triage Chief Complaint: General Illness ED Provider: Briana Gamboa Dx/Rx/DC Orders Clinical Impression: Viral syndrome Instructions: ED Viral Syndrome (Adult) Prescriptions: No Action gabapentin 300 mg Tablet 300 mg PO TID RF: 0 diazepam [diazepam] 5 MG tablet 5 mg PO Q8 PRN (Reason: Muscle Spasm) Qty: 15 RF: 0 omeprazole 10 mg capsule,delayed release(DR/EC) 10 mg PO DAILY RF: 0 hydroxyzine HCl 25 mg tablet 25 mg PO DAILY RF: 0 sertraline 50 mg tablet 50 mg PO DAILY RF: 0 loratadine 10 mg tablet 10 mg PO DAILY RF: 0 prazosin 2 mg capsule 2 mg PO DAILY RF: 0 Primary Care Provider: eJnnifer Levine NP Referrals: Jennifer Levine NP, [employer] [Primary Care Provider] - 1-2 Weeks Disposition Disposition: Home, Self Care
[2021-09-14 08:58] LABS: Internal QC Validated? YES +Cl - CLEAR BKGD; Pregnancy, Serum, hCG Quali. NEGATIVE Negative
--- NOTE | 2021-09-14 09:00 | RAD_ITS ---
STUDY: X-RAY CHEST REASON FOR EXAM: Female, 31 years old. Cough TECHNIQUE: Single AP portable view of the chest. COMPARISON: None. FINDINGS: Bibasilar infiltrates more prominent on the left side. There is no demonstrated pleural abnormality. Normal size heart. Normal mediastinum and alma rosa. Normal visualized pulmonary arteries. Normal visualized aortic arch and descending thoracic aorta. Normal visualized thoracic spine. Normal visualized ribs, clavicles, and shoulders. There is no demonstrated abnormality of the visualized soft tissue structures of the upper abdomen. RAD/Chest 1 View (Portable) IMPRESSION: Bibasilar infiltrates worse on the left base. Electronically Signed: Manjit Gonzales MD at 9:21 EDT ,
[2021-09-14 09:02] LABS: Absolute Lymphocyte Count 0.33 X10^3/uL (0.83-4.51); Absolute Neutrophil Count 5.3 X10^3/uL (2.0-7.7); Basophil# 0.04 X10^3/uL; Basophil% 0.6 % (0-1); Eosinophil# 0.09 X10^3/uL; Eosinophils% 1.4 % (0-5); Hematocrit 39.5 % (37-47); Hemoglobin 13.4 g/dL (12.0-15.0); Lymphocyte # 0.33 X10^3/ul (0.83-4.51); Lymphocyte % 5.1 % (19-41); Mean Corp Hgb Conc 33.9 g/dL (32-36); Mean Corpuscular Hgb 29.8 pg (27.0-32.0); Mean Corpuscular Volume 87.8 fL (81-99); Mean Platelet Vol. 11.3 fl (6.2-12.0); Monocyte# 0.63 X10^3/uL; Monocyte% 9.7 % (0-10); NRBC Flagged by Analyzer 0 % (0-5); Neutrophil # 5.34 X10^3/uL (2.7-7.7); Neutrophil % 82.3 % (47-70); POSITIVE DIFFERENTIAL YES; Platelet Count 227 K/mm3 (150-450); RBC Distribution Width CV 13.6 % (11.6-14.6); RBC Distribution Width SD 44.1 fl (35.1-43.9); White Blood Count 6.5 K/mm3 (4.4-11.0)
[2021-09-14] MEDS: 0.9% Normal Saline 1,000 ML 150 ML IV (09:03)
[2021-09-14] MEDS: DiphenhydrAMINE 50 MG/ML Syringe 25 MG IV (09:03)
[2021-09-14 09:04] LABS: Differential Indicated SCAN CRITERIA MET
[2021-09-14] MEDS: Ketorolac 30 MG/ML Syringe IV (09:04)
[2021-09-14] MEDS: Metoclopramide 10 MG/2 ML Vial IV (09:04)
[2021-09-14 09:15] LABS: AST(SGOT) 12 U/L (15-37); Alanine Aminotransfer ALT/SGPT 15 U/L (13-56); Alkaline Phosphatase 82 U/L (45-117); Anion Gap 10 (5-15); BUN 11 mg/dL (7-18); Bilirubin, Direct 0.07 mg/dL (0.00-0.30); Calcium,Total 8.2 mg/dL (8.5-10.1); Chloride 111 mmol/L (98-107); Creatinine, Serum 0.61 mg/dL (0.55-1.02); EST Glomerular Filtration Rate 122 mL/min (>60); Est Glom Filt Rate - Afr Amer 147 mL/min (>60); Estimated Creatinine Clearance 136.03 ml/min; Globulin 3.2 g/dL (2.2-4.2); Glucose 93 mg/dL (74-106); Potassium 3.9 mmol/L (3.5-5.1); Protein, Total 7.2 g/dL (6.4-8.2); Sodium Level 139 mmol/L (136-145)
[2021-09-14 09:34] LABS: Platelet Estimate ADEQUATE (ADEQ); Red Cell Morphology NORM C+C NORMAL (NORM C&C)
[2021-09-14 10:02] VITALS: PULSE 92; RESP 14; O2SAT 98
== END 2021-09-14 10:05 | disposition home or self-care (01) ==
PROVIDERS: Emergency Provider Emergency Medicine; PCP Nurse Practitioner Primary Care; Visit Provider Emergency Medicine
DX: B34.9 Viral infection, unspecified (principal); F17.210 Nicotine dependence, cigarettes, uncomplicated; F32.A Depression, unspecified; Z79.899 Other long term (current) drug therapy
CPT/HCPCS: 71045; 80048; 80076; 84703; 85025; 87428; 96361; 96374; 96375; 99283; J7030; A4216

== ENCOUNTER → 2022-08-12 | Outpatient (CLI) | payer MEDICAID, SELFPAY ==
--- NOTE | 2022-08-12 13:45 | CER_PTH ---
PATIENT: DIALLO REEVES LOC: [facility]#:[id number] AGE/SX: 32/F ROOM: RE08/12/[address]: Dr. Briana Prieto DO : 1990 BED: DIS: 08/12/2022 SPEC #: [id number] RECD: 08/12/22 15:00 STATUS: LORA GONSALESJuan Miguel #: [id number] GUILLERMO: 08/12/22 13:[address]: Briana Prieto DEPT: SURGICAL PATHOLOGY RECD BY: Kristi Oh ENTERED: 08/13/22 09:24 SP TYPE: CERV OTHR DR: Jennifer Levine NP Tissues: A - Uterine cervix, NOS B - Endocervical Procedures: Surgery Specimen Level IV HEADER OPERATION: Colposcopy PRE-OP DIAGNOSIS: LGSIL, HPV - TISSUE SUBMITTED: A ? 12 o?clock, B - Endocervical curettings MICROSCOPIC DIAGNOSIS A. Cervix, 12 o?clock, biopsy: A fragment of squamous mucosa, negative for dysplasia. B. Endocervical curettings: Scant fragments of desquamated benign ecto- and endocervical epithelium and mucous, negative for dysplasia. MAICOL:juan jose 08/16/2022 COMMENT Correlation with clinical findings and appropriate follow up are necessary. MICROSCOPIC DESCRIPTION Slides are reviewed. GROSS DESCRIPTION A - Received in fixative is one container labeled with the patient's name and designated 12 o'clock cervix. The specimen consists of one irregular fragment of light valiente soft tissue that measures 0.5 x 0.4 x 0.1 cm. The specimen is totally submitted in one cassette. B - Received is a metallic endoscopic cytobrush with adherent minute fragments of valiente-red tissue brush in 2 ml of clear red fluid and labeled with the patient's name and and designated per the requisition as ECC. The material is dislodged from the brush and submitted for cytology preparation including cell block. / MAICOL:juan jose 08/13/2022 TC:5 CPT: 95587 x2
== END | disposition home or self-care (01) ==
LOC: LABSPEC 08-13 08:17
PROVIDERS: PCP Nurse Practitioner Primary Care; Visit Provider Obstetrics & Gynecology
DX: R87.810 Cervical high risk human papillomavirus (HPV) DNA test positive (principal)
CPT/HCPCS: 88305